=== PATIENT | female | born 1985 | race Caucasian/White ===

== ENCOUNTER → 2017-01-07 | Outpatient (CLI) | payer OTHER ==
[~2017-01-07] MED LIST: ACET1TAB43 PO; AMOX-358 PO; BENZ56AE TP; CETI10CA PO; CODE-54 PO; DCS100C PO; DOCU-143 PO; FERR-74 PO; FRS325T PO; IBP600T1 PO; IBUP-1773 PO; LEVO1TAB7 PO; PREN-37 PO; PREN1TAB25 PO; RANI75TA21 PO; RNT150T PO
--- NOTE | 2017-01-07 16:06 | Diagnostic Imaging Report ---
INDICATION: survey. TECHNIQUE: Multiple real-time grayscale images were obtained over the gravid uterus. COMPARISON: There are no prior studies available for comparison. FINDINGS: There is a single live fetus in cephalic presentation. heart motion was noted and a rate of 155 BPM was recorded. There were no abnormalities identified. The placenta is anterior and there is no previa. The amniotic fluid volume is within normal limits. The growth parameters are fairly uniform. IMPRESSION: 1. There is a single live fetus at approximately 20 weeks 5 days gestation +/-1.5 weeks. The EDC is May 22, 2017. 2. There were no abnormalities identified. 3. The growth parameters are fairly uniform. Biometrical measurements are as follows: Biparietal 4.89 cm, age 20 weeks 5 days. Head circumference 18.39 cm, age 20 weeks 6 days. Abdominal circumference 15.56 cm, age 20 weeks 6 days. Femur length 3.25 cm, age 20 weeks 1 days. Sonographic estimate age: 20 weeks 5 days. Sonographic estimated date of delivery: 05/22/17. Estimated Weight: 358 gm (+/- 52 gm). LMP percentile: 81%. heart rate: 155 beats per minute. number: 1 of 1. Dictated by: Dictated on workstation # [id number]
== END ==
LOC: RAD 13:24
PROVIDERS: ATTEND Obstetrics & Gynecology
DX: Z36 Encounter for antenatal screening of mother (principal); Z3A.20 20 weeks gestation of pregnancy
CPT/HCPCS: 76805

== ENCOUNTER → 2017-04-06 | Outpatient (CLI) | payer OTHER ==
--- NOTE | 2017-04-06 23:00 | Diagnostic Imaging Report ---
Left breast ultrasound. INDICATION: Left breast lump. FINDINGS: The palpable area at 3:30 position measures 2.4 x 0.6 x 1.6 cm. It has appearance of an intramammary lymph node with preserved fatty hilum with smooth margins and mild internal vascularity suggestive of reactive lymph node. No suspicious features, and the retroareolar region and four quadrants of the left breast demonstrate no other significant abnormality. IMPRESSION: A 2.4 cm right breast lesion is seen at the 3:30 position, at 3 cm from the nipple, is favored to be benign and may relate to an intramammary lymph node. Clinical followup and a followup ultrasound in four months is recommended. ACR BI-RADS Category 3: Probably benign findings. Dictated by: Dictated on workstation # [id number]
== END ==
LOC: RAD 14:40
PROVIDERS: ATTEND Surgery
DX: N63.42 Unspecified lump in left breast, subareolar (principal)
CPT/HCPCS: 76641

== ENCOUNTER 2017-05-21 06:28 | Inpatient (IN) | payer OTHER ==
[2017-05-21] VITALS (53 sets, daily range): BP systolic 87–154; BP diastolic 50–98
[~2017-05-21] VITALS: Ht 177.8 cm; Wt 87.1 kg
[~2017-05-21 06:28] MED LIST changes: -FERR-74 PO; +FERR325T18 PO
[2017-05-21] MEDS ORDERED: D5 LR IV SOLUTION 1,000 ML IV ONE (06:47)
[2017-05-21] MEDS: D5 LR IV SOLUTION 1,000 ML IV SCH ×2 (06:58→14:15)
[2017-05-21] MEDS ORDERED: MINERAL OIL CONCENTRATE 99.9% 15 ML UDC TOP PRN (07:00)
[2017-05-21 07:04] LABS: BILIRUBIN,URINE NEGATIVE (NEGATIVE); CLARITY,URINE CLEAR; COLOR,URINE YELLOW; GLUCOSE, URINE (UA) NEGATIVE (NEGATIVE); KETONES,URINE NEGATIVE (NEGATIVE); LEUKOCYTE ESTERASE ,URINE 1+ (NEGATIVE); NITRITE,URINE NEGATIVE (NEGATIVE); PH,URINE 6 (5-9); PROTEIN,URINE NEGATIVE (NEGATIVE); UROBILINOGEN,URINE NORMAL (NORMAL)
[2017-05-21 07:06] LABS: BASOPHILS % (AUTO) 0 % (0-10); EOSINOPHILS # (AUTO) 0.1 10^3/uL (0.0-0.3); EOSINOPHILS % (AUTO) 1 % (0-10); HEMATOCRIT 37 % (35-52); HEMOGLOBIN 12.9 G/DL (11.5-16.0); LYMPHOCYTES # (AUTO) 1.5 X 10^3 (1.0-4.0); LYMPHOCYTES % (AUTO) 22 % (12-44); MEAN CORPUSCULAR HEMOGLOBIN 33 PG (25-34); MEAN CORPUSCULAR HGB CONC 35 G/DL (32-36); MEAN CORPUSCULAR VOLUME 93 FL (80-99); MEAN PLATELET VOLUME 11.5 FL (7.4-10.4); MONOCYTES # (AUTO) 0.7 X 10^3 (0.0-1.0); MONOCYTES % (AUTO) 10 % (0-12); NEUTROPHILS # (AUTO) 4.6 X 10^3 (1.8-7.8); NEUTROPHILS % (AUTO) 67 % (42-75); PLATELET COUNT 180 10^3/uL (130-400); RED BLOOD COUNT 3.96 10^6/uL (4.35-5.85); RED CELL DISTRIBUTION WIDTH 12.7 % (10.0-14.5); WHITE BLOOD COUNT 6.8 10^3/uL (4.3-11.0)
[2017-05-21 07:25] LABS: BACTERIA,URINE TRACE /HPF
[2017-05-21] MEDS ORDERED: OXYTOCIN/NORMAL SALINE 500 ML IV SCH ×2 (07:55→17:05)
--- NOTE | 2017-05-21 09:09 | History & Physical-OB ---
OB - Chief Complaint & HPI Date/Time Date of Admission: Date of Admission: May 21, 2017 at 6:28 am Time Seen by Provider: 07:45 Chief Complaint/History OB-Reason for Admission/Chief: Induction of Labor Hx : 4 Hx Para: 3 Expected Date of Delivery: May 28, 2017 Gestational Age in Weeks: 39 Indication for induction: maternal discomfort Admission Nurse Assessment Rev: Yes History of Labs O neg Antibody neg RI RPR NR HBsAg NR HIV NR GC neg GBS neg Allergies and Home Medications Allergies Coded Allergies: No Known Drug Allergies (Unverified , 09/05/13) Home Medications Acetaminophen with Codeine 1 Each Tablet, 1-2 TAB PO Q4H PRN for MODERATE TO SEVERE PAIN, #30 Prescribed by: SULAIMAN THOMAS on 03/24/15 0903 Amoxicillin/Potassium Clav 1 Each Tablet, 1 EACH PO BID, #10 Prescribed by: SULAIMAN THOAMS on 03/24/15 0918 Cetirizine HCl 10 Mg Capsule, 10 MG PO DAILY, (Reported) Docusate Sodium 100 Mg Capsule, 100 MG PO DAILY, (Reported) Ferrous Sulfate 325 Mg Tablet, 325 MG PO DAILY, #30 Prescribed by: SULAIMAN THOMAS on 03/24/15 09 Ibuprofen 600 Mg Tablet, 600 MG PO Q6H, #80 Prescribed by: SULAIMAN THOMAS on 03/24/15 0903 Vit/Iron Fumarate/FA 1 Each Tablet, 1 EACH PO DAILY, (Reported) Ranitidine HCl 75 Mg Tablet, 75 MG PO DAILY, (Reported) OB - History Hx of Present Care: Yes Ultrasounds: Normal mid trimester US Obstetrical Complications: None Medical Complications: None Obstetrical History Hx Termination: No Hx Multiple Gestation: No Hx Stillbirth: No Hx Complication: No Hx Induced Hypertens: No Hx Maternal Gestational Diabet: No Delivery History Hx Dystocia: No Hx Large For Gestational Age I: No Hx Small for Gestational Age I: No Hx Section: No Hx Vaginal Delivery Post C-Sec: No Hx Blood Disorders: No Adverse Rxn to Tranfusion: No Patient Past Medical History none Social History/Family History Recent Infectious Disease Expo: No Alcohol Use: Denies Use Recreational Drug Use: No Immunizations Hepatitis A: Yes Hepatitis B: Yes Tetanus Booster (TDap): Less than 5yrs Date of Influenza Vaccine: Feb 19, 2015 OB - Admission Exam Physical Exam Vitals: Vital Signs 1/11/18 1/11/18 06:33 08:05 Temp 97.6 Pulse 76 Resp 18 B/P (MAP) 123/75 (91) O2 Delivery Room Air HEENT: NCAT Heart: Rhythm Normal Lungs: Clear Abdomen: Gravid Extremities: Normal Reflexes: Normal Cervical Dilatation: 3cm Effacement: 75% Station: -1 Membranes: Intact Heart Rate: 130's Accelerations: Accelerations Present Decelerations: No Decelerations Short Term Variability: Present Oil Pipe Inspector Variability: Average (6-25) Contractions on Admission: 6-10 Minutes Apart Intensity: Mild Calero Scoring Tool (Modified) Dilation (cm): 3-4cm (2) Effacement (%): 51-79% (2) Descent/Station: -1,0 (2) Cervix Consistency: Soft (2) Cervix Position: Posterior (0) Add 1 point for: Each previous vaginal delivery (1) Calero Score: 11 Labs Laboratory Tests Test 05/21/17 06:40 Range/Units White Blood Count 6.8 4.3-11.0 10^3/uL Red Blood Count 3.96 L 4.35-5.85 10^6/uL Hemoglobin 12.9 11.5-16.0 G/DL Hematocrit 37 35-52 % Mean Corpuscular Volume 93 80-99 FL Mean Corpuscular Hemoglobin 33 25-34 PG Mean Corpuscular Hemoglobin Concent 35 32-36 G/DL Red Cell Distribution Width 12.7 10.0-14.5 % Platelet Count 180 130-400 10^3/uL Mean Platelet Volume 11.5 H 7.4-10.4 FL Neutrophils (%) (Auto) 67 42-75 % Lymphocytes (%) (Auto) 22 12-44 % Monocytes (%) (Auto) 10 0-12 % Eosinophils (%) (Auto) 1 0-10 % Basophils (%) (Auto) 0 0-10 % Neutrophils # (Auto) 4.6 1.8-7.8 X 10^3 Lymphocytes # (Auto) 1.5 1.0-4.0 X 10^3 Monocytes # (Auto) 0.7 0.0-1.0 X 10^3 Eosinophils # (Auto) 0.1 0.0-0.3 10^3/uL Basophils # (Auto) 0.0 0.0-0.1 10^3/uL Urine Color YELLOW Urine Clarity CLEAR Urine pH 6 5-9 Urine Specific [place] 1.010 L 1.016-1.022 Urine Protein NEGATIVE NEGATIVE Urine Glucose (UA) NEGATIVE NEGATIVE Urine Ketones NEGATIVE NEGATIVE Urine Nitrite NEGATIVE NEGATIVE Urine Bilirubin NEGATIVE NEGATIVE Urine Urobilinogen NORMAL NORMAL MG/DL Urine Leukocyte Esterase 1+ H NEGATIVE Urine RBC (Auto) NEGATIVE NEGATIVE Urine RBC NONE /HPF Urine WBC 2-5 /HPF Urine Squamous Epithelial Cells 2-5 /HPF Urine Crystals NONE /LPF Urine Bacteria TRACE /HPF Urine Casts NONE /LPF Urine Mucus NEGATIVE /LPF Urine Culture Indicated NO OB - Assessment/Plan/Diagnosis Assessment Assessment: induction of labor Plan Induction Method: per Pitocin Protocol Discharge Diagnosis Diagnosis: 32 yo @ 39 weeks Elective induction of labor GBS neg SULAIMAN THOMAS DO May 21, 2017 9:09 am
--- NOTE | 2017-05-21 09:10 | Discharge Inst-Women's Service ---
Discharge Inst-Women's Serv Depart Medication/Instructions New, Converted or Re-Newed RX: RX on Chart Consults/Follow Up Additional Follow Up: Yes Orders/Referrals Dr. Thomas in 6 weeks Activity Driving Instructions: No Driving for 1 Week NO SMOKING: NO SMOKING Nothing Inside Vagina: No Douching, No [place], No Tampons Diet Discharge Diet: No Restrictions Symptoms to Report to : Bleeding Excessive, Pain Increased, Fever Over 101 Degrees F, Vaginal Bleeding Increase, Questions/Concerns For Any Problems or Questions: Contact Your Physician Skin/Wound Care Bathing Instructions: Shower (x 2 weeks or sitz baths) SULAIMAN THOMAS DO May 21, 2017 9:10 am
[2017-05-21] MEDS ORDERED: VIT1TABL81 PO (10:45)
[2017-05-21] MEDS ORDERED: DOXY25TA35 PO (10:45)
[2017-05-21] MEDS ORDERED: SUFENTA 0.6MCG/ML BUPIVA 0.125 100 ML ONE (12:37)
[2017-05-21] MEDS ORDERED: fentaNYL INJECTION 100 MCG/2 ML AMP ONE (13:20)
[2017-05-21] MEDS ORDERED: CATHETER FLUSH 10 ML SYR IV SCH ×2 (14:00→22:00)
[2017-05-21] MEDS ORDERED: LACTATED RINGERS 1,000 ML IV ONE (16:17)
[2017-05-21] MEDS ORDERED: NALOXONE 0.4 MG/ML 1 ML (NARCAN) VIAL IV PRN (16:30)
[2017-05-21] MEDS ORDERED: EPIDURAL (SUFENTA 0.6MCG/ML BUPIVA 0.125%) 100 ML BAG EPI SCH (16:30)
[2017-05-21] MEDS ORDERED: CATHETER FLUSH 10 ML SYR IV PRN (16:30)
[2017-05-21] MEDS ORDERED: HYDROcodone/APAP 5 MG/325 MG (LORTAB) TAB PO PRN (17:15)
[2017-05-21] MEDS ORDERED: MEASLES,MUMPS,RUBELLA 1 EA INJ SQ ONE (17:15)
[2017-05-21] MEDS ORDERED: DIBUCAINE (NUPERCAINAL) 1% OINT 30 GM TOP PRN (17:15)
[2017-05-21] MEDS ORDERED: BENZOCAINE/MENTHOL (DERMOPLAST) 56 ML CAN TP PRN (17:15)
[2017-05-21] MEDS ORDERED: TETANUS,DIPTH,PERTUSS P/F (BOOSTRIX) 0.5 ML VIAL IM ONE (17:15)
--- NOTE | 2017-05-21 17:15 | OB Labor & Delivery Record ---
L&D History Date of Service Date of Service: May 21, 2017 History Expected Date of Delivery: May 28, 2017 Gestational Age in Weeks: 39 Hx : 4 Hx Para: 3 Complications Events: Routine care Operative Indications (Cesarea: N/A-Vaginal Delivery Intrapartal Events: None L&D Stage1 Stage One Onset of Labor - Date: May 21, 2017 Monitors and Tracing Monitor Mode: External Heart Rate: 120 Monitor Accelerations: Uniform Monitor Decelerations: None Station: -1 Penitentiary Variability: Average (6-10) Short Term Variability: Present Presentation: Vertex Vital Signs VS - Last 72 Hours, by Label 05/21/17 05/21/17 05/21/17 05/21/17 06:33 08:05 08:20 08:35 Temp 97.6 Pulse 67 76 65 67 Resp 18 16 B/P (MAP) 113/72 (86) 123/75 (91) 111/71 (84) 107/73 (84) O2 Delivery Room Air Room Air Room Air Room Air 05/21/17 05/21/17 05/21/17 05/21/17 08:50 09:05 09:20 09:35 Pulse 63 66 68 71 Resp 16 B/P (MAP) 107/64 (78) 111/65 (80) 106/65 (79) 97/56 (70) O2 Delivery Room Air Room Air Room Air Room Air 05/21/17 05/21/17 05/21/17 05/21/17 09:50 10:20 10:35 10:50 Pulse 68 67 72 57 Resp 16 16 B/P (MAP) 113/78 (90) 120/56 (77) 111/73 (86) 109/68 (82) O2 Delivery Room Air Room Air Room Air Room Air 05/21/17 05/21/17 05/21/17 05/21/17 11:05 11:20 11:35 11:50 Temp 96.9 Pulse 56 60 71 64 Resp 16 18 B/P (MAP) 111/74 (86) 117/77 (90) 120/80 (93) 104/69 (81) O2 Delivery Room Air Room Air Room Air Room Air 05/21/17 05/21/17 05/21/17 05/21/17 12:05 12:20 12:35 12:50 Pulse 62 62 58 60 B/P (MAP) 108/70 (83) 110/72 (85) 127/75 (92) 109/71 (84) O2 Delivery Room Air Room Air Room Air Room Air 05/21/17 05/21/17 05/21/17 05/21/17 13:05 13:15 13:25 13:28 Pulse 78 68 66 73 Resp 18 B/P (MAP) 132/86 (101) 123/76 (92) 113/60 (77) 106/67 (80) Pulse Ox 96 100 96 96 O2 Delivery Room Air Room Air Room Air Room Air 05/21/17 05/21/17 05/21/17 05/21/17 13:30 13:32 13:35 13:38 Temp 96.4 Pulse 69 67 71 63 Resp 18 B/P (MAP) 112/67 (82) 107/60 (76) 118/56 (76) 113/65 (81) Pulse Ox 100 100 100 100 O2 Delivery Room Air Room Air Room Air Room Air 05/21/17 05/21/17 05/21/17 05/21/17 13:41 13:45 13:50 14:00 Pulse 60 64 58 58 B/P (MAP) 93/50 (64) 93/52 (66) 104/66 (79) 117/55 (75) Pulse Ox 100 100 99 98 O2 Delivery Room Air Room Air Room Air Room Air 05/21/17 05/21/17 05/21/17 05/21/17 14:05 14:12 14:30 14:45 Pulse 64 65 67 72 B/P (MAP) 111/70 (84) 87/50 (62) 89/57 (68) 97/52 (67) Pulse Ox 99 99 100 100 O2 Delivery Room Air Room Air Room Air Room Air Rupture of Membranes Spontaneous Ruture of Membrane: No Amniotic Membrane Rupture Time: 1138 Amniotic Membrane Fluid Desc.: Clear Vaginal Bleeding Description: Normal Show Induction/Anesthesia Epidural Cath Placement - Time: 1316 L&D Stage2 Stage Two Stage II Date: May 21, 2017 Monitors and Tracing Monitor Mode: External Heart Rate: 120 Monitor Decelerations: Variable Penitentiary Variability: Average (6-10) Short Term Variability: Present Position: Right Occiput Anterior Presentation: Vertex Cord Descript/Complications Cord Vessel Description: 3 Vessels Complications Cord evulsion occurred at delivery of head, which prompted me to deliver anterior shoulder and remainder of rapidly so that I would clamp the cord RLIEY. Delivery Type Delivery Method: Spontaneous Vaginal Anterior Shoulder: Right Episiotomy/Perineal Laceration Laceraction(s)/Extensions: Yes Episiotomy Description: Perineal Extension/lac, 2nd degree Sutures Used: Vicryl Degree (describe repair) 2nd degree laceration repaired using 3-0 rapide in usual fashion Condition of Infant Delivery 1 minute Comment: 8 5 minute Comment: 9 Notes Weight 8lbs 6 oz, APGARs 8/9 Condition of Condition of Infant: Living Exam: No Observed Abnormalities Resuscitation Resuscitation: N/A - Spontaneous Resp L&D Stage3 Stage Three Stage III Date: May 21, 2017 Pictocin Pitocin Administration mu/min: 8 Pitocin ml/hr: 8 Pitocin Administration Comment: 30 mu ran in wide open at delivery of placenta Placenta Delivery Placenta Delivery: Spontaneous Delivery Summary Summary Estimated blood loss (mL): 350 350 mL Attending at delivery: Sulaiman Thomas DO Condition of Delivery Examined: Cervix Examined, Uterus Explored Post Hemorrhage: No Condition of Mother stable Condition of (s) stable SULAIMAN THOMAS DO May 21, 2017 5:15 pm
[2017-05-21] MEDS: IBUPROFEN 600 MG (MOTRIN) TAB PO SCH ×2 (17:17→23:58)
[2017-05-21] MEDS: WITCH HAZEL(TUCKS) 40 EA JAR TOP PRN (17:18)
[2017-05-21] MEDS ORDERED: ACHD5005 PO (17:19)
[2017-05-21] MEDS ORDERED: Benzocaine/Menthol TP (17:19)
[2017-05-21] MEDS ORDERED: DOCU100C37 PO (17:19)
[2017-05-21] MEDS ORDERED: FERR325T18 PO (17:19)
[2017-05-21] MEDS ORDERED: IBUP-1773 PO (17:19)
[2017-05-21] MEDS ORDERED: DOCUSATE SODIUM 100 MG (COLACE) CAP PO SCH (21:00)
[2017-05-22 04:05] VITALS: BP 112/60
[2017-05-22 05:28] LABS: BASOPHILS % (AUTO) 0 % (0-10); EOSINOPHILS # (AUTO) 0.1 10^3/uL (0.0-0.3); EOSINOPHILS % (AUTO) 1 % (0-10); HEMATOCRIT 35 % (35-52); HEMOGLOBIN 12.1 G/DL (11.5-16.0); LYMPHOCYTES # (AUTO) 2.2 X 10^3 (1.0-4.0); LYMPHOCYTES % (AUTO) 18 % (12-44); MEAN CORPUSCULAR HEMOGLOBIN 33 PG (25-34); MEAN CORPUSCULAR HGB CONC 35 G/DL (32-36); MEAN CORPUSCULAR VOLUME 94 FL (80-99); MEAN PLATELET VOLUME 10.8 FL (7.4-10.4); MONOCYTES # (AUTO) 0.9 X 10^3 (0.0-1.0); MONOCYTES % (AUTO) 7 % (0-12); NEUTROPHILS # (AUTO) 8.7 X 10^3 (1.8-7.8); NEUTROPHILS % (AUTO) 74 % (42-75); PLATELET COUNT 150 10^3/uL (130-400); RED BLOOD COUNT 3.68 10^6/uL (4.35-5.85); RED CELL DISTRIBUTION WIDTH 12.8 % (10.0-14.5); WHITE BLOOD COUNT 11.8 10^3/uL (4.3-11.0)
[2017-05-22] MEDS: IBUPROFEN 600 MG (MOTRIN) TAB PO SCH ×3 (06:08→17:42)
[2017-05-22] MEDS ORDERED: PRENATAL VITAMIN 1 EA TAB PO SCH (07:00)
[2017-05-22] MEDS ORDERED: FERROUS SULF 325 MG (IRON) TAB PO SCH (07:00)
[2017-05-22 08:30] VITALS: BP 107/69
[2017-05-22] MEDS ORDERED: DOCUSATE CALCIUM 240 MG (SURFAK) CAP PO SCH (09:00)
--- NOTE | 2017-05-22 09:19 | Progress Note-Standard ---
Standard Progress Note Progress Notes/Assess & Plan Date Seen by Provider: May 22, 2017 Time Seen by Provider: 09:00 Progress/Assessment & Plan Patient doing well no concerns voiced this morning. Lochia min-mod. Pain well controlled, ambulating and voiding freely. Vital Sign - Last 24 Hours 05/21/17 05/21/17 05/21/17 05/21/17 09:20 09:35 09:50 10:20 Pulse 68 71 68 67 Resp 16 B/P (MAP) 106/65 (79) 97/56 (70) 113/78 (90) 120/56 (77) O2 Delivery Room Air Room Air Room Air Room Air 05/21/17 05/21/17 05/21/17 05/21/17 10:35 10:50 11:05 11:20 Pulse 72 57 56 60 Resp 16 16 16 B/P (MAP) 111/73 (86) 109/68 (82) 111/74 (86) 117/77 (90) O2 Delivery Room Air Room Air Room Air Room Air 05/21/17 05/21/17 05/21/17 05/21/17 11:35 11:50 12:05 12:20 Temp 96.9 Pulse 71 64 62 62 Resp 18 B/P (MAP) 120/80 (93) 104/69 (81) 108/70 (83) 110/72 (85) O2 Delivery Room Air Room Air Room Air Room Air 05/21/17 05/21/17 05/21/17 05/21/17 12:35 12:50 13:05 13:15 Pulse 58 60 78 68 Resp 18 B/P (MAP) 127/75 (92) 109/71 (84) 132/86 (101) 123/76 (92) Pulse Ox 96 100 O2 Delivery Room Air Room Air Room Air Room Air 05/21/17 05/21/17 05/21/17 05/21/17 13:25 13:28 13:30 13:32 Temp 96.4 Pulse 66 73 69 67 Resp 18 B/P (MAP) 113/60 (77) 106/67 (80) 112/67 (82) 107/60 (76) Pulse Ox 96 96 100 100 O2 Delivery Room Air Room Air Room Air Room Air 1/11/18 1/11/18 1/11/18 1/11/18 13:35 13:38 13:41 13:45 Pulse 71 63 60 64 B/P (MAP) 118/56 (76) 113/65 (81) 93/50 (64) 93/52 (66) Pulse Ox 100 100 100 100 O2 Delivery Room Air Room Air Room Air Room Air 05/21/17 05/21/17 05/21/17 05/21/17 13:50 14:00 14:05 14:12 Pulse 58 58 64 65 B/P (MAP) 104/66 (79) 117/55 (75) 111/70 (84) 87/50 (62) Pulse Ox 99 98 99 99 O2 Delivery Room Air Room Air Room Air Room Air 05/21/17 05/21/17 05/21/17 05/21/17 14:30 14:45 14:47 14:50 Pulse 67 72 72 68 Resp 16 B/P (MAP) 89/57 (68) 97/52 (67) 100/50 (67) 105/56 (72) Pulse Ox 100 100 100 100 O2 Delivery Room Air Room Air Room Air Room Air 05/21/17 05/21/17 05/21/17 05/21/17 14:55 14:58 15:00 15:15 Pulse 72 73 72 99 B/P (MAP) 101/54 (70) 95/53 (67) 97/52 (67) 98/59 (72) Pulse Ox 100 100 100 100 O2 Delivery Room Air Room Air Room Air Room Air 05/21/17 05/21/17 05/21/17 05/21/17 15:30 15:42 15:56 16:11 Pulse 93 100 70 77 Resp 16 B/P (MAP) 154/98 (116) 148/69 (95) 113/55 (74) 125/60 (81) Pulse Ox 97 O2 Delivery Room Air Room Air Room Air Room Air 05/21/17 05/21/17 05/21/17 05/21/17 16:26 16:44 16:56 17:11 Temp 96.5 96.7 Pulse 76 68 65 67 Resp 16 B/P (MAP) 123/66 (85) 105/53 (70) 113/59 (77) 99/58 (72) O2 Delivery Room Air Room Air Room Air Room Air 05/21/17 05/21/17 05/21/17 05/22/17 17:26 21:00 23:58 04:05 Temp 97.7 97.9 98.0 Pulse 60 57 64 55 Resp 18 18 18 B/P (MAP) 98/59 (72) 97/59 (72) 103/68 (80) 112/60 (77) Pulse Ox 97 98 99 O2 Delivery Room Air Room Air Room Air Room Air 05/22/17 08:30 Temp 97.8 Pulse 58 Resp 18 B/P (MAP) 107/69 (82) Pulse Ox 100 O2 Delivery Room Air Intake and Output 05/21/17 05/21/17 05/22/17 15:00 23:00 07:00 Intake Total 2000 ml 1120 ml Balance 2000 ml 1120 ml Uterine fundus firm and palpated below umbilicus Laboratory Tests Test 05/22/17 05:20 Range/Units White Blood Count 11.8 H 4.3-11.0 10^3/uL Red Blood Count 3.68 L 4.35-5.85 10^6/uL Hemoglobin 12.1 11.5-16.0 G/DL Hematocrit 35 35-52 % Mean Corpuscular Volume 94 80-99 FL Mean Corpuscular Hemoglobin 33 25-34 PG Mean Corpuscular Hemoglobin Concent 35 32-36 G/DL Red Cell Distribution Width 12.8 10.0-14.5 % Platelet Count 150 130-400 10^3/uL Mean Platelet Volume 10.8 H 7.4-10.4 FL Neutrophils (%) (Auto) 74 42-75 % Lymphocytes (%) (Auto) 18 12-44 % Monocytes (%) (Auto) 7 0-12 % Eosinophils (%) (Auto) 1 0-10 % Basophils (%) (Auto) 0 0-10 % Neutrophils # (Auto) 8.7 H 1.8-7.8 X 10^3 Lymphocytes # (Auto) 2.2 1.0-4.0 X 10^3 Monocytes # (Auto) 0.9 0.0-1.0 X 10^3 Eosinophils # (Auto) 0.1 0.0-0.3 10^3/uL Basophils # (Auto) 0.0 0.0-0.1 10^3/uL Diagnosis: PPD 1 NVD P: Anticipate dc later today PP precautions reviewed. SULAIMAN THOMAS DO May 22, 2017 9:19 am
[2017-05-22 12:15] VITALS: BP 107/70
[2017-05-22 16:30] VITALS: BP 118/71
[2017-05-22] MEDS: WITCH HAZEL(TUCKS) 40 EA JAR TOP PRN (16:30)
[2017-05-22 17:50] VITALS: BP 118/71
== END 2017-05-22 17:50 | disposition home or self-care (01) | DRG 775 ==
LOC: LDRP 06:28
PROVIDERS: ADMIT Obstetrics & Gynecology; ATTEND Obstetrics & Gynecology
PROC: 10E0XZZ Delivery of Products of Conception, External Approach (ICD-10-PCS; principal; 2017-05-21)
PROC: 0KQM0ZZ Repair Perineum Muscle, Open Approach (ICD-10-PCS; 2017-05-21)
DX: O69.89X0 Labor and delivery complicated by other cord complications, not applicable or unspecified (principal); O70.1 Second degree perineal laceration during delivery; Z3A.39 39 weeks gestation of pregnancy; Z37.0 Single live birth
CPT/HCPCS: 36415; 81000; 85025; 86850; 86900; 86901

== ENCOUNTER → 2017-07-13 | Outpatient (CLI) | payer OTHER ==
[~2017-07-13] MED LIST changes: +ACHD5005 PO; +Benzocaine/Menthol TP; +DOCU100C37 PO; +DOXY25TA35 PO; +VIT1TABL81 PO
--- NOTE | 2017-07-13 14:54 | Diagnostic Imaging Report ---
INDICATION: Palpable lump in the left breast. Patient had a palpable lump in the left breast in March with subsequent ultrasound demonstrating a probable intramammary lymph node. COMPARISON: No prior mammograms are available for comparison. The current study was also evaluated with a Computer Aided Detection (CAD) system. FINDINGS: Both breasts are heterogeneously dense, limiting the sensitivity of mammography. Slight nodularity at the area of palpable abnormality is seen, likely corresponding to the known intramammary lymph node. No suspicious calcifications are identified. The axillae are unremarkable. IMPRESSION: No mammographic features suspicious for malignancy. Followup left breast ultrasound is recommended and will be performed today. ACR BI-RADS Category 0: Incomplete. (Needs additional imaging evaluation). Result letter will be mailed to the patient. Note: At least 10% of breast cancer is not imaged by mammography. Dictated by: Dictated on workstation # [id number]
--- NOTE | 2017-07-14 13:34 | Diagnostic Imaging Report ---
INDICATION: Palpable lump in the left breast. TECHNIQUE: Sonographic interrogation of the 3:30 location of the left breast was performed. COMPARISON: Prior ultrasound from 04/06/2017. FINDINGS: The previously noted intramammary lymph node at the 3:30 location 3 cm from the nipple is again seen measuring 2.1 x 0.5 x 1.2 cm. This compares with 2.4 x 0.6 x 1.4 cm previously. A thin overlying cortex is again noted. No other abnormality is seen. IMPRESSION: Slight reduction in the size of the intraparenchymal lymph node at the 3:30 location of the left breast when compared with the prior study from 04/06/2017. Additional sonographic followup could be performed in 4-6 months to show continued stability. ACR BI-RADS Category 3: Probably benign findings. Dictated by: Dictated on workstation # [id number]
== END ==
LOC: RAD 13:43
PROVIDERS: ATTEND Surgery
DX: N63.20 Unspecified lump in the left breast, unspecified quadrant (principal)
CPT/HCPCS: 76642; 77066

== ENCOUNTER → 2018-01-27 | Outpatient (CLI) | payer OTHER ==
--- NOTE | 2018-01-27 18:16 | Diagnostic Imaging Report ---
INDICATION: Left breast nodule. Patient presents for six-month followup. COMPARISON: Correlation is made with prior left breast ultrasound from 07/13/2017. EXAMINATION: Sonographic interrogation of the 3:30 location, 3 cm from the nipple, was performed. FINDINGS: Previously an intramammary lymph node was present. Today no suspicious abnormality is seen. No lymph node, mass or cyst is seen. IMPRESSION: BI-RADS category 1. No sonographic abnormality is identified on today's study. Dictated by: Dictated on workstation # [id number]
== END ==
LOC: RAD 11:37
PROVIDERS: ATTEND Surgery
DX: N63.20 Unspecified lump in the left breast, unspecified quadrant (principal)
CPT/HCPCS: 76642

== ENCOUNTER → 2019-03-15 | Outpatient (CLI) | payer OTHER ==
[~2019-03-15] MED LIST changes: +RANI-324 PO; -RANI75TA21 PO
--- NOTE | 2019-03-15 13:06 | Diagnostic Imaging Report ---
INDICATION: Size and dates. TECHNIQUE: Multiple real-time grayscale images were obtained over the gravid uterus. COMPARISON: None. FINDINGS: There is a single living intrauterine in a cephalic presentation. Placenta is anterior. There is no previa. There is normal volume of amniotic fluid. The anatomical survey is unremarkable. This includes a three-vessel cord and four-chamber heart. Heart rate is 150 BPM and regular. The biometry correlates with a gestational age of 20 weeks 3 days. The maternal adnexa are unremarkable. Biometrical measurements are as follows: Biparietal 4.70 cm, age 20 weeks 2 days. Head circumference 17.94 cm, age 20 weeks 3 days. Abdominal circumference 14.19 cm, age 19 weeks 4 days. Femur length 3.47 cm, age 21 weeks 0 days. Sonographic estimate age: 20 weeks 3 days. Sonographic estimated date of delivery: 07/30/2019. Estimated Weight: 339 gm (+/- 50 gm). LMP percentile: 16%. heart rate: 150 beats per minute. number: 1 of 1. IMPRESSION: Single living intrauterine with sonographically estimated gestational age of 20 weeks 3 days and estimated date of confinement of July 30, 2019. Dictated by: Dictated on workstation # [id number]
== END ==
LOC: RAD 10:08
PROVIDERS: ATTEND Obstetrics & Gynecology
DX: Z34.92 Encounter for supervision of normal pregnancy, unspecified, second trimester (principal); Z3A.20 20 weeks gestation of pregnancy
CPT/HCPCS: 76805

== ENCOUNTER 2019-07-19 22:30 | Inpatient (IN) | payer OTHER ==
[~2019-07-19] VITALS: Ht 177.8 cm; Wt 85.9 kg
--- NOTE | 2019-07-19 22:20 | NUR ---
GENARO PEREZ presented to unit via ambulation from home, accompanied by , for INDUCTION. GENARO PEREZ weighed, gowned, voided, and to bed. EFHM and TOCO applied, VS taken. GENARO PEREZ oriented to bed controls, call light, TV, heat, and A/C controls.
[2019-07-19 22:30] VITALS: BP 126/76
[2019-07-19] MEDS ORDERED: LACTATED RINGERS 1,000 ML IV SCH (23:10)
[2019-07-19] MEDS ORDERED: MISOPROSTOL 100 MCG (CYTOTEC) TAB PO ONE (23:15)
[2019-07-19] MEDS ORDERED: TERBUTALINE INJ 1 MG/ML (BRETHINE) AMP SC PRN (23:15)
[2019-07-19 23:21] LABS: BASOPHILS % (AUTO) 0 % (0-10); EOSINOPHILS # (AUTO) 0.1 10^3/uL (0.0-0.3); EOSINOPHILS % (AUTO) 1 % (0-10); HEMATOCRIT 35 % (35-52); HEMOGLOBIN 11.9 G/DL (11.5-16.0); LYMPHOCYTES # (AUTO) 1.3 X 10^3 (1.0-4.0); LYMPHOCYTES % (AUTO) 17 % (12-44); MEAN CORPUSCULAR HEMOGLOBIN 31 PG (25-34); MEAN CORPUSCULAR HGB CONC 34 G/DL (32-36); MEAN CORPUSCULAR VOLUME 91 FL (80-99); MEAN PLATELET VOLUME 11.1 FL (7.4-10.4); MONOCYTES # (AUTO) 0.8 X 10^3 (0.0-1.0); MONOCYTES % (AUTO) 11 % (0-12); NEUTROPHILS # (AUTO) 5.5 X 10^3 (1.8-7.8); NEUTROPHILS % (AUTO) 71 % (42-75); PLATELET COUNT 202 10^3/uL (130-400); RED CELL DISTRIBUTION WIDTH 12.5 % (10.0-14.5); WHITE BLOOD COUNT 7.7 10^3/uL (4.3-11.0)
[2019-07-19 23:23] VITALS: BP 117/75
[2019-07-19 23:23] LABS: BILIRUBIN,URINE NEGATIVE (NEGATIVE); CLARITY,URINE CLEAR; COLOR,URINE YELLOW; GLUCOSE, URINE (UA) NEGATIVE (NEGATIVE); KETONES,URINE NEGATIVE (NEGATIVE); LEUKOCYTE ESTERASE ,URINE NEGATIVE (NEGATIVE); NITRITE,URINE NEGATIVE (NEGATIVE); PROTEIN,URINE NEGATIVE (NEGATIVE)
[2019-07-19 23:29] LABS: BACTERIA,URINE TRACE /HPF; WBC,URINE RARE /HPF
[2019-07-19] MEDS: D5 LR IV SOLUTION 1,000 ML IV SCH (23:43)
[2019-07-19 23:51] VITALS: BP 113/64
[2019-07-20] VITALS (77 sets, daily range): BP systolic 88–130; BP diastolic 50–79
[2019-07-20] MEDS ORDERED: MISOPROSTOL 100 MCG (CYTOTEC) TAB PO SCH (03:15)
[2019-07-20] MEDS ORDERED: ONDANSETRON 4 MG/2 ML (SDV) Z0FRAN IVP PRN (03:15)
[2019-07-20] MEDS ORDERED: FAMO-119 PO (04:00)
[2019-07-20] MEDS ORDERED: CATHETER FLUSH 10 ML SYR IV SCH (06:00)
[2019-07-20] MEDS: D5 LR IV SOLUTION 1,000 ML IV SCH ×2 (07:20→15:19)
[2019-07-20] MEDS ORDERED: OXYTOCIN PRE-MIX DRIP 500 ML IV ONE (08:01)
[2019-07-20] MEDS ORDERED: OXYTOCIN PRE-MIX DRIP 500 ML IV SCH ×2 (08:04→08:30)
--- NOTE | 2019-07-20 08:28 | History & Physical-OB ---
OB - Chief Complaint & HPI Date/Time Date of Admission: Date of Admission: Jul 19, 2019 at 22:30 Date seen by a Provider: Jul 20, 2019 Time Seen by a Provider: 08:20 Chief Complaint/History OB-Reason for Admission/Chief: Induction of Labor Hx : 5 Hx Para: 4 Expected Date of Delivery: Jul 27, 2019 Gestational Age in Weeks: 39 Gestational Age in Days: 0 Indication for induction: maternal discomfort Admission Nurse Assessment Rev: Yes History of Labs O neg Antibody neg RI RPR NR HBsAg NR HIV NR GC neg GBS neg Allergies and Home Medications Allergies Coded Allergies: No Known Drug Allergies (Unverified , 09/05/13) Home Medications Doxylamine Succinate 25 Mg Tablet, 25 MG PO HS, (Reported) Famotidine 20 Mg Tablet, 20 MG PO PRN, (Reported) Vit/Iron Fumarate/FA 1 Each Tablet, 1 EACH PO DAILY, (Reported) Vit B6/Mag Cit & Ox/Potass Cit 1 Each Tablet.er, 1 EACH PO DAILY, (Reported) Patient Home Medication List Home Medication List Reviewed: Yes OB - History Hx of Present Care: Yes Ultrasounds: Normal mid trimester US Obstetrical Complications: None Medical Complications: None Obstetrical History Hx Termination: No Hx Multiple Gestation: No Hx Stillbirth: No Hx Complication: No Hx Induced Hypertens: No Hx Maternal Gestational Diabet: No Delivery History Hx Dystocia: No Hx Large For Gestational Age I: No Hx Small for Gestational Age I: No Hx Section: No Hx Vaginal Delivery Post C-Sec: No Hx Blood Disorders: No Adverse Rxn to Tranfusion: No Patient Past Medical History none Social History/Family History Recent Infectious Disease Expo: No Alcohol Use: Denies Use Recreational Drug Use: No Immunizations Hepatitis A: Yes Hepatitis B: Yes Tetanus Booster (TDap): Less than 5yrs Date of Influenza Vaccine: Jan 25, 2019 OB - Admission Exam Physical Exam Vitals: Vital Signs 07/19/19 07/20/19 07/20/19 22:30 02:51 03:25 Temp 36.7 Pulse 55 Resp 18 B/P (MAP) 92/55 (67) Pulse Ox 99 O2 Delivery Room Air HEENT: NCAT Heart: Rhythm Normal Lungs: Clear Abdomen: Gravid Extremities: Normal Reflexes: Normal Cervical Dilatation: 1cm Effacement: 75% Station: -2 Membranes: Intact Heart Rate: 130's Accelerations: Accelerations Present Decelerations: No Decelerations Short Term Variability: Present Electrical Instrumentation Technician Variability: Average (6-25) Contractions on Admission: < 5 Minutes Apart Intensity: Mild Calero Scoring Tool (Modified) Dilation (cm): 1-2cm (1) Effacement (%): 51-79% (2) Descent/Station: -1,0 (2) Cervix Consistency: Soft (2) Cervix Position: Middle/Mid-Position (1) Add 1 point for: Each previous vaginal delivery (1) Calero Score: 12 Labs Laboratory Tests Test 07/19/19 22:40 Range/Units White Blood Count 7.7 4.3-11.0 10^3/uL Red Blood Count 3.84 L 4.35-5.85 10^6/uL Hemoglobin 11.9 11.5-16.0 G/DL Hematocrit 35 35-52 % Mean Corpuscular Volume 91 80-99 FL Mean Corpuscular Hemoglobin 31 25-34 PG Mean Corpuscular Hemoglobin Concent 34 32-36 G/DL Red Cell Distribution Width 12.5 10.0-14.5 % Platelet Count 202 130-400 10^3/uL Mean Platelet Volume 11.1 H 7.4-10.4 FL Neutrophils (%) (Auto) 71 42-75 % Lymphocytes (%) (Auto) 17 12-44 % Monocytes (%) (Auto) 11 0-12 % Eosinophils (%) (Auto) 1 0-10 % Basophils (%) (Auto) 0 0-10 % Neutrophils # (Auto) 5.5 1.8-7.8 X 10^3 Lymphocytes # (Auto) 1.3 1.0-4.0 X 10^3 Monocytes # (Auto) 0.8 0.0-1.0 X 10^3 Eosinophils # (Auto) 0.1 0.0-0.3 10^3/uL Basophils # (Auto) 0.0 0.0-0.1 10^3/uL Urine Color YELLOW Urine Clarity CLEAR Urine pH 6.0 5-9 Urine Specific Edison 1.010 L 1.016-1.022 Urine Protein NEGATIVE NEGATIVE Urine Glucose (UA) NEGATIVE NEGATIVE Urine Ketones NEGATIVE NEGATIVE Urine Nitrite NEGATIVE NEGATIVE Urine Bilirubin NEGATIVE NEGATIVE Urine Urobilinogen 0.2 < = 1.0 MG/DL Urine Leukocyte Esterase NEGATIVE NEGATIVE Urine RBC (Auto) TRACE-I NEGATIVE Urine RBC NONE /HPF Urine WBC RARE /HPF Urine Squamous Epithelial Cells 2-5 /HPF Urine Crystals NONE /LPF Urine Bacteria TRACE /HPF Urine Casts NONE /LPF Urine Mucus NEGATIVE /LPF Urine Culture Indicated NO OB - Assessment/Plan/Diagnosis Assessment Assessment: induction of labor Admission Dx 34 yo @ 39 weeks Induction of labor GBS neg Admission Status: Inpatient Order (span 2 midnights) Reason for Inpatient Admission: Induction of labor at term Plan Plan: Induction Induction Method: per Misoprostol Protocol SULAIMAN THOMAS DO Jul 20, 2019 08:28
[2019-07-20] MEDS ORDERED: SUFENTA 0.6MCG/ML BUPIVA 0.125 100 ML ONE (11:58)
--- NOTE | 2019-07-20 12:20 | NUR ---
1220 Neftali GILMAN CRNA here for epidural placement. Procedure explained, consent reviewed and signed by anesthesia. Questions answered to patient's satisfaction. Time out taken to verify correct patient/procedure. Patient up to side of bed, assisted into sitting position. 1223 Betadine prep done x3 and sterile drape applied. 1226 Local done, see anesthesia record. 1228 Test dose given, see anesthesia record for drug and dosage. 1230 Test dose #2 given, see anesthesia record for drug and dosage. Epidural catheter secured in place. Epidural placement complete. 1233 Assisted back into bed, monitors adjusted. Epidural dosed, see anesthesia record. Epidural of Sufenta/Bupvicaine @ 12cc/hr stated per pump. Patient tolerated procedure well.
[2019-07-20] MEDS: EPIDURAL (SUFENTA 0.6MCG/ML BUPIVA 0.125%) 100 ML BAG EPI SCH ×2 (12:34→19:05)
[2019-07-20] MEDS ORDERED: LACTATED RINGERS 1,000 ML IV SCH (12:42)
[2019-07-20] MEDS ORDERED: METOCLOPRAMIDE INJ 10 MG/2 ML (REGLAN) IV PRN (12:45)
[2019-07-20] MEDS ORDERED: diphenhydrAMINE 50 MG/ML INJ (BENADRYL) IV PRN (12:45)
[2019-07-20] MEDS ORDERED: NALOXONE 0.4 MG/ML 1 ML (NARCAN) VIAL IV PRN ×2 (12:45)
[2019-07-20] MEDS ORDERED: LIDOCAINE/EPI 2% 1:200,00 (XYLOCAINE) 10 ML VIAL ONE (16:16)
[2019-07-20] MEDS: ONDANSETRON 4 MG/2 ML (SDV) Z0FRAN IV PRN (20:41)
[2019-07-21] VITALS (22 sets, daily range): BP systolic 97–139; BP diastolic 56–86
[2019-07-21] MEDS ORDERED: ONDANSETRON 4 MG/2 ML (SDV) Z0FRAN ONE (03:20)
[2019-07-21] MEDS: ONDANSETRON 4 MG/2 ML (SDV) Z0FRAN IV PRN (03:20)
--- NOTE | 2019-07-21 03:20 | NUR ---
0315 - EPIDURAL CATH REMOVED, CATH TIP IN TACT, ASYMPTOMATIC PER PT REPORT, SITE WNL AND LEFT O/A 0320 - PT AMBULATORY STANDBY TO BATHROOM, FIRST VOID SINCE DELIVERY, PERICARE PADS CHANGED, PT AMBULATORY TO PP ROOM 309, ORIENTED TO CALL SYSTEM AND SURROUNDINGS, DENIES NEEDS. WILL CONT TO MONITOR.
--- NOTE | 2019-07-21 04:13 | OB Labor & Delivery Record ---
L&D History Date of Service Date of Service: Jul 21, 2019 History Expected Date of Delivery: Jul 27, 2019 Gestational Age in Weeks: 39 Hx : 5 Hx Para: 4 Complications Events: Routine care Operative Indications (Cesarea: N/A-Vaginal Delivery Intrapartal Events: None L&D Stage1 Stage One Onset of Labor - Date: Jul 21, 2019 Monitors and Tracing Monitor Mode: External Heart Rate: 125 Monitor Accelerations: Uniform Monitor Decelerations: Variable Station: -3 Senior Living Variability: Average (6-10) Short Term Variability: Present Presentation: Vertex Vital Signs VS - Last 72 Hours, by Label 07/19/19 07/19/19 07/19/19 07/20/19 22:30 23:23 23:51 00:50 Temp 36.6 36.7 Pulse 73 67 67 61 Resp 18 18 18 18 B/P (MAP) 117/75 (89) 113/64 (80) 109/65 (80) Pulse Ox 99 O2 Delivery Room Air Room Air Room Air Room Air 07/20/19 07/20/19 07/20/19 07/20/19 01:51 02:51 03:25 07:24 Temp 36.7 36.8 Pulse 58 55 71 Resp 18 18 18 B/P (MAP) 88/53 (65) 92/55 (67) 114/73 (87) O2 Delivery Room Air Room Air Room Air 07/20/19 07/20/19 07/20/19 07/20/19 08:14 08:29 08:43 08:59 Pulse 69 60 62 67 Resp 18 18 18 18 B/P (MAP) 115/65 (82) 116/68 (84) 105/55 (72) 102/57 (72) O2 Delivery Room Air Room Air Room Air Room Air 07/20/19 07/20/19 07/20/19 07/20/19 10:04 10:14 10:28 10:45 Temp 36.9 Pulse 66 60 60 60 Resp 18 18 18 18 B/P (MAP) 114/76 (89) 116/73 (87) 110/73 (85) 114/73 (87) O2 Delivery Room Air Room Air Room Air Room Air 07/20/19 07/20/19 07/20/19 07/20/19 10:59 11:14 11:30 11:44 Temp 36.6 Pulse 70 57 62 59 Resp 18 18 18 18 B/P (MAP) 106/65 (79) 108/66 (80) 112/58 (76) 123/67 (85) O2 Delivery Room Air Room Air Room Air Room Air 07/20/19 07/20/19 07/20/19 07/20/19 12:00 12:13 12:22 12:25 Pulse 63 60 69 72 Resp 18 18 18 18 B/P (MAP) 119/68 (85) 111/71 (84) 115/74 (88) 111/73 (86) Pulse Ox 100 O2 Delivery Room Air Room Air Room Air Room Air 07/20/19 07/20/19 07/20/19 07/20/19 12:28 12:31 12:34 12:37 Pulse 63 71 69 64 Resp 18 18 18 18 B/P (MAP) 113/78 (90) 118/75 (89) 120/68 (85) 110/64 (79) Pulse Ox 100 100 100 O2 Delivery Room Air Room Air Room Air Room Air 07/20/19 07/20/19 07/20/19 07/20/19 12:40 12:42 12:46 12:49 Pulse 64 61 64 61 Resp 18 18 18 18 B/P (MAP) 102/62 (75) 102/62 (75) 106/59 (75) 101/60 (74) Pulse Ox 99 99 O2 Delivery Room Air Room Air Room Air Room Air 07/20/19 07/20/19 07/20/19 07/20/19 12:52 12:57 13:02 13:08 Pulse 72 65 64 67 Resp 18 18 18 18 B/P (MAP) 101/60 (74) 104/65 (78) 130/58 (82) Pulse Ox 99 98 98 100 O2 Delivery Room Air Room Air Room Air Room Air 07/20/19 07/20/19 07/20/19 07/20/19 13:14 13:17 13:22 13:28 Pulse 60 58 55 56 Resp 18 18 18 18 B/P (MAP) 106/60 (75) 100/63 (75) 100/63 (75) 99/60 (73) Pulse Ox 99 99 98 98 O2 Delivery Room Air Room Air Room Air Room Air 07/20/19 07/20/19 07/20/19 3/11/20 13:34 13:37 13:42 13:52 Pulse 56 60 58 64 Resp 18 18 18 18 B/P (MAP) 99/57 (71) 94/61 (72) 98/61 (73) 115/79 (91) Pulse Ox 98 97 98 100 O2 Delivery Room Air Room Air Room Air Room Air 07/20/19 07/20/19 07/20/19 07/20/19 14:00 14:20 14:27 14:35 Temp 36.5 Pulse 67 51 62 Resp 18 18 18 B/P (MAP) 120/59 (79) 96/61 (73) 111/74 (86) O2 Delivery Room Air Room Air Room Air 07/20/19 07/20/19 07/20/19 07/20/19 14:50 15:05 15:20 15:35 Pulse 58 68 60 59 Resp 18 18 18 18 B/P (MAP) 103/75 (84) 104/72 (83) 104/70 (81) 105/64 (78) O2 Delivery Room Air Room Air Room Air Room Air 07/20/19 07/20/19 07/20/19 07/20/19 15:49 16:04 16:20 16:35 Temp 36.6 Pulse 125 57 61 Resp 18 18 18 18 B/P (MAP) 106/70 (82) 111/78 (89) 100/65 (77) 102/67 (79) O2 Delivery Room Air Room Air Room Air Room Air 07/20/19 07/20/19 07/20/19 07/20/19 16:51 16:53 17:06 17:20 Temp 36.9 Pulse 61 58 60 Resp 18 18 18 B/P (MAP) 111/74 (86) 108/69 (82) 96/52 (67) O2 Delivery Room Air Room Air Room Air 07/20/19 07/20/19 07/20/19 07/20/19 17:34 17:50 18:05 18:35 Pulse 60 59 60 61 Resp 18 18 18 18 B/P (MAP) 97/52 (67) 92/50 (64) 95/51 (66) 101/55 (70) O2 Delivery Room Air Room Air Room Air Room Air 07/20/19 07/20/19 07/20/19 07/20/19 18:51 19:15 19:30 19:45 Temp 36.8 Pulse 63 65 65 82 Resp 18 18 18 18 B/P (MAP) 106/56 (73) 114/62 (79) 115/68 (84) 112/57 (75) O2 Delivery Room Air Room Air Room Air Room Air 07/20/19 07/20/19 07/20/19 07/20/19 20:00 20:15 20:30 20:45 Temp 37.0 Pulse 85 85 77 80 Resp 18 18 18 18 B/P (MAP) 95/52 (66) 105/56 (72) 96/51 (66) 113/60 (77) O2 Delivery Room Air Room Air Room Air Room Air 07/20/19 07/20/19 07/20/19 07/20/19 21:00 21:15 21:30 21:45 Pulse 80 67 70 75 Resp 18 18 18 18 B/P (MAP) 113/60 (77) 111/65 (80) 100/58 (72) 100/58 (72) O2 Delivery Room Air Room Air Room Air Room Air 07/20/19 07/20/19 07/20/19 07/20/19 22:00 22:15 22:30 22:45 Pulse 83 67 72 75 Resp 18 18 18 18 B/P (MAP) 130/78 (95) 107/60 (76) 105/56 (72) 106/60 (75) O2 Delivery Room Air Room Air Room Air Room Air 07/20/19 07/20/19 07/20/19 07/20/19 23:00 23:15 23:30 23:45 Pulse 77 75 77 72 Resp 18 18 18 18 B/P (MAP) 109/69 (82) 108/69 (82) 109/69 (82) 114/67 (83) O2 Delivery Room Air Room Air Room Air Room Air 07/21/19 07/21/19 07/21/19 07/21/19 00:00 00:15 00:30 00:45 Temp 36.9 Pulse 77 78 73 72 Resp 18 18 18 18 B/P (MAP) 109/70 (83) 107/72 (84) 106/63 (77) 103/60 (74) O2 Delivery Room Air Room Air Room Air Room Air 07/21/19 07/21/19 07/21/19 01:00 01:15 01:30 Pulse 72 75 68 Resp 18 18 18 B/P (MAP) 111/66 (81) 115/75 (88) 109/64 (79) O2 Delivery Room Air Room Air Room Air Rupture of Membranes Spontaneous Ruture of Membrane: No Amniotic Membrane Rupture Time: 1151 Amniotic Membrane Fluid Desc.: Clear Vaginal Bleeding Description: Normal Show Induction/Anesthesia Epidural Cath Placement - Time: 1227 Progress/Notes Patient brought in last night and given cytotec po 100 mcg followed by 50 mcg dose 4 hrs later. Pitocin started at 0750 due to being unable to AROM. At noon arom performed, and pitocin continued to max dose of 20 mu, in that time frame epidural requested and patient progressed to complete and +2 station. L&D Stage2 Stage Two Stage II Date: Jul 21, 2019 Monitors and Tracing Monitor Mode: External Heart Rate: 125 Monitor Accelerations: Uniform Monitor Decelerations: Variable Senior Living Variability: Average (6-10) Short Term Variability: Present Position: Right Occiput Anterior Presentation: Vertex Cord Descript/Complications Cord Vessel Description: 3 Vessels Complications nuchal cord x 1 Delivery Type Delivery Method: Spontaneous Vaginal Anterior Shoulder: Right Episiotomy/Perineal Laceration Laceraction(s)/Extensions: No Condition of Delivery 1 minute Comment: 9 5 minute Comment: 9 Notes Live female infant weight 6lbs 12 oz Condition of Infant Condition of : Living Exam: No Observed Abnormalities Resuscitation Resuscitation: N/A - Spontaneous Resp L&D Stage3 Stage Three Stage III Date: Jul 21, 2019 Pictocin Pitocin Administration mu/min: 16 Pitocin ml/hr: 16 Pitocin Administration Comment: 2 bags of pitocin wide open at delivery of placenta Placenta Delivery Placenta Delivery: Spontaneous Delivery Summary Summary Estimated blood loss (mL): 200 200 Attending at delivery: Sulaiman Thomas DO Condition of Delivery Examined: Cervix Examined, Uterus Explored Post Hemorrhage: No Condition of Mother stable Condition of Infant (s) stable SULAIMAN THOMAS DO Jul 21, 2019 04:13
[2019-07-21] MEDS ORDERED: TETANUS,DIPTH,PERTUSS P/F (BOOSTRIX) 0.5 ML VIAL IM ONE (04:15)
[2019-07-21] MEDS ORDERED: WITCH HAZEL(TUCKS) 40 EA JAR TOP PRN (04:15)
[2019-07-21] MEDS ORDERED: DCS100C PO (04:15)
[2019-07-21] MEDS ORDERED: HYDROcodone/APAP 5 MG/325 MG (LORTAB) TAB PO PRN (04:15)
[2019-07-21] MEDS ORDERED: BENZ78AE2 TP (04:15)
[2019-07-21] MEDS ORDERED: Hydrocodone Bit/Acetaminophen PO (04:15)
[2019-07-21] MEDS ORDERED: BENZOCAINE/MENTHOL (DERMOPLAST) 60 ML CAN TP PRN (04:15)
[2019-07-21] MEDS ORDERED: MEASLES,MUMPS,RUBELLA 1 EA INJ SQ ONE (04:15)
[2019-07-21] MEDS ORDERED: DIBU30OI TOP (04:15)
[2019-07-21] MEDS ORDERED: DIBUCAINE (NUPERCAINAL) 1% OINT 30 GM TOP PRN (04:15)
[2019-07-21] MEDS ORDERED: IBUP-844 PO (04:15)
--- NOTE | 2019-07-21 04:15 | Discharge Inst-Women's Service ---
Discharge Inst-Women's Serv Depart Medication/Instructions New, Converted or Re-Newed RX: RX on Chart Final Diagnosis PPD 1 NVD Problems Reviewed?: Yes Consults/Follow Up Additional Follow Up: Yes Orders/Referrals Dr. Thomas in 6 weeks Activity Activity: Activity as Tolerated Driving Instructions: No Driving for 1 Week NO SMOKING: NO SMOKING Nothing Inside Vagina: No Douching, No Troutman, No Tampons Diet Discharge Diet: No Restrictions Symptoms to Report to : Bleeding Excessive, Pain Increased, Fever Over 101 Degrees F, Vaginal Bleeding Increase, Questions/Concerns For Any Problems or Questions: Contact Your Physician SULAIMAN THOMAS DO Jul 21, 2019 04:15
[2019-07-21] MEDS: OXYTOCIN PRE-MIX DRIP 500 ML IV SCH ×2 (04:22→05:53)
[2019-07-21] MEDS: IBUPROFEN 600 MG (MOTRIN) TAB PO SCH ×3 (05:28→18:37)
[2019-07-21] MEDS ORDERED: CATHETER FLUSH 10 ML SYR IV SCH (06:00)
[2019-07-21] MEDS ORDERED: PRENATAL VITAMIN 1 EA TAB PO SCH (07:00)
--- NOTE | 2019-07-21 08:02 | Postpartum Progress Note ---
LUIS HUDSON MED STUDENT 07/21/19 0802: Note Note Day # [0] Subjective: Patient is without complaints. Ambulating, voiding. Tolerating a regular diet without nausea or vomiting. Normal lochia. Pain is well controlled with oral pain medications. . [] Objective: [Vitals: Temp 36.9, HR 66, RR 18, BP 97/59] Physical Exam: General - Alert and oriented, no apparent distress Abdomen - Soft, appropriately tender to palpation, non-distended, fundus firm at umbilicus Extremities - no edema, negative Ervin's bilaterally [] Assessment: [] post- day # [0], status post vaginal delivery. Recovering well, hemodynamically stable [] Plan: Routine care. Encourage breast feeding. Encourage ambulation. Ferrous sulfate supplementation. Plan for discharge [] Vitals - Labs Vital Signs - I&O Vital Signs Date Time Temp Pulse Resp B/P (MAP) Pulse Ox O2 Delivery O2 Flow Rate FiO2 07/21/19 06:10 36.9 66 18 97/59 (72) 96 07/21/19 05:00 38.6 18 07/21/19 04:45 38.4 18 07/21/19 04:30 37.0 73 18 109/71 (84) 07/21/19 04:15 38.6 18 99/56 (70) 07/21/19 04:00 37.0 18 07/21/19 03:48 18 Room Air 07/21/19 03:40 90 18 139/76 (97) Room Air 07/21/19 03:30 87 18 137/67 (90) Room Air 07/21/19 03:15 71 18 121/75 (90) Room Air 07/21/19 03:00 75 18 116/70 (85) Room Air 07/21/19 02:45 76 18 123/76 (92) Room Air 07/21/19 02:30 70 18 123/76 (92) Room Air 07/21/19 02:15 88 18 117/76 (90) Room Air 07/21/19 02:00 81 18 117/71 (86) Room Air 07/21/19 01:45 82 18 115/66 (82) Room Air 07/21/19 01:30 68 18 109/64 (79) Room Air 07/21/19 01:15 75 18 115/75 (88) Room Air 07/21/19 01:00 72 18 111/66 (81) Room Air 07/21/19 00:45 72 18 103/60 (74) Room Air 07/21/19 00:30 73 18 106/63 (77) Room Air 07/21/19 00:15 78 18 107/72 (84) Room Air 07/21/19 00:00 36.9 77 18 109/70 (83) Room Air 07/20/19 23:45 72 18 114/67 (83) Room Air 07/20/19 23:30 77 18 109/69 (82) Room Air 07/20/19 23:15 75 18 108/69 (82) Room Air 07/20/19 23:00 77 18 109/69 (82) Room Air 07/20/19 22:45 75 18 106/60 (75) Room Air 07/20/19 22:30 72 18 105/56 (72) Room Air 07/20/19 22:15 67 18 107/60 (76) Room Air 07/20/19 22:00 83 18 130/78 (95) Room Air 07/20/19 21:45 75 18 100/58 (72) Room Air 07/20/19 21:30 70 18 100/58 (72) Room Air 07/20/19 21:15 67 18 111/65 (80) Room Air 07/20/19 21:00 80 18 113/60 (77) Room Air 07/20/19 20:45 80 18 113/60 (77) Room Air 07/20/19 20:30 77 18 96/51 (66) Room Air 07/20/19 20:15 85 18 105/56 (72) Room Air 07/20/19 20:00 37.0 85 18 95/52 (66) Room Air 07/20/19 19:45 82 18 112/57 (75) Room Air 07/20/19 19:30 65 18 115/68 (84) Room Air 07/20/19 19:15 65 18 114/62 (79) Room Air 07/20/19 18:51 36.8 63 18 106/56 (73) Room Air 07/20/19 18:35 61 18 101/55 (70) Room Air 07/20/19 18:05 60 18 95/51 (66) Room Air 07/20/19 17:50 59 18 92/50 (64) Room Air 07/20/19 17:34 60 18 97/52 (67) Room Air 07/20/19 17:20 60 18 96/52 (67) Room Air 07/20/19 17:06 58 18 108/69 (82) Room Air 07/20/19 16:53 36.9 07/20/19 16:51 61 18 111/74 (86) Room Air 07/20/19 16:35 61 18 102/67 (79) Room Air 07/20/19 16:20 57 18 100/65 (77) Room Air 07/20/19 16:04 36.6 18 111/78 (89) Room Air 07/20/19 15:49 125 18 106/70 (82) Room Air 07/20/19 15:35 59 18 105/64 (78) Room Air 07/20/19 15:20 60 18 104/70 (81) Room Air 07/20/19 15:05 68 18 104/72 (83) Room Air 07/20/19 14:50 58 18 103/75 (84) Room Air 07/20/19 14:35 62 18 111/74 (86) Room Air 07/20/19 14:27 36.5 07/20/19 14:20 51 18 96/61 (73) Room Air 07/20/19 14:00 67 18 120/59 (79) Room Air 07/20/19 13:52 64 18 115/79 (91) 100 Room Air 07/20/19 13:42 58 18 98/61 (73) 98 Room Air 07/20/19 13:37 60 18 94/61 (72) 97 Room Air 07/20/19 13:34 56 18 99/57 (71) 98 Room Air 07/20/19 13:28 56 18 99/60 (73) 98 Room Air 07/20/19 13:22 55 18 100/63 (75) 98 Room Air 07/20/19 13:17 58 18 100/63 (75) 99 Room Air 07/20/19 13:14 60 18 106/60 (75) 99 Room Air 07/20/19 13:08 67 18 130/58 (82) 100 Room Air 07/20/19 13:02 64 18 98 Room Air 07/20/19 12:57 65 18 104/65 (78) 98 Room Air 07/20/19 12:52 72 18 101/60 (74) 99 Room Air 07/20/19 12:49 61 18 101/60 (74) Room Air 07/20/19 12:46 64 18 106/59 (75) 99 Room Air 07/20/19 12:42 61 18 102/62 (75) 99 Room Air 07/20/19 12:40 64 18 102/62 (75) Room Air 07/20/19 12:37 64 18 110/64 (79) 100 Room Air 07/20/19 12:34 69 18 120/68 (85) Room Air 07/20/19 12:31 71 18 118/75 (89) 100 Room Air 07/20/19 12:28 63 18 113/78 (90) 100 Room Air 07/20/19 12:25 72 18 111/73 (86) Room Air 07/20/19 12:22 69 18 115/74 (88) 100 Room Air 07/20/19 12:13 60 18 111/71 (84) Room Air 07/20/19 12:00 63 18 119/68 (85) Room Air 07/20/19 11:44 59 18 123/67 (85) Room Air 07/20/19 11:30 36.6 62 18 112/58 (76) Room Air 07/20/19 11:14 57 18 108/66 (80) Room Air 07/20/19 10:59 70 18 106/65 (79) Room Air 07/20/19 10:45 60 18 114/73 (87) Room Air 07/20/19 10:28 60 18 110/73 (85) Room Air 07/20/19 10:14 60 18 116/73 (87) Room Air 07/20/19 10:04 36.9 66 18 114/76 (89) Room Air 07/20/19 08:59 67 18 102/57 (72) Room Air 07/20/19 08:43 62 18 105/55 (72) Room Air 07/20/19 08:29 60 18 116/68 (84) Room Air 07/20/19 08:14 69 18 115/65 (82) Room Air I & O 07/21/19 07:00 Intake Total 2000 ml Balance 2000 ml WHEAT,MERLY L 07/22/19 1049: LUIS HUDSON MED STUDENT Jul 21, 2019 08:02 MERLY MORRIS Jul 22, 2019 10:49
[2019-07-21] MEDS ORDERED: FERROUS SULF 325 MG (IRON) TAB PO SCH (09:00)
[2019-07-21] MEDS: DOCUSATE SODIUM 100 MG (COLACE) CAP PO SCH ×2 (09:35→21:31)
--- NOTE | 2019-07-21 09:35 | NUR ---
initial shift assessment completed, see interventions for further.
--- NOTE | 2019-07-21 12:55 | NUR ---
scheduled motrin given, see eMar for further. voices no c/o's @ time.
[2019-07-21] MEDS ORDERED: FAMOTIDINE 20 MG (PEPCID) TABLET ONE (13:15)
--- NOTE | 2019-07-21 14:19 | NUR ---
Pt is [employer]. Senior Quality Assurance Engineer provided prayer and Communion.
--- NOTE | 2019-07-21 14:40 | Anesthesia-Regional Post-Op ---
Regional Patient Condition Mental Status: Alert, Oriented x3 Circulation: Same as Pre-Op Headache: Absent Sensation: Full Recovery Motor Block: Absent Post Op Complications Complications None Follow Up Care/Instructions Patient Instructions None needed. Anesthesia/Patient Condition Patient is doing well, no complaints, stable vital signs, no apparent adverse anesthesia problems. VALENTINE MCLEOD DO Jul 21, 2019 14:40
--- NOTE | 2019-07-21 19:27 | NUR ---
report given to next shift
[2019-07-21] MEDS: FAMOTIDINE 20 MG (PEPCID) TABLET PO SCH (21:31)
[2019-07-22 00:05] VITALS: BP 100/52
[2019-07-22] MEDS: IBUPROFEN 600 MG (MOTRIN) TAB PO SCH ×3 (00:07→11:38)
--- NOTE | 2019-07-22 01:15 | NUR ---
Report from Hodan LAWRENCE
[2019-07-22 05:34] VITALS: BP 112/69
[2019-07-22 06:21] LABS: BASOPHILS # (AUTO) 0.1 10^3/uL (0.0-0.1); BASOPHILS % (AUTO) 1 % (0-10); EOSINOPHILS # (AUTO) 0.2 10^3/uL (0.0-0.3); EOSINOPHILS % (AUTO) 2 % (0-10); HEMATOCRIT 33 % (35-52); HEMOGLOBIN 10.8 G/DL (11.5-16.0); LYMPHOCYTES # (AUTO) 2.1 X 10^3 (1.0-4.0); LYMPHOCYTES % (AUTO) 27 % (12-44); MEAN CORPUSCULAR HEMOGLOBIN 31 PG (25-34); MEAN CORPUSCULAR HGB CONC 33 G/DL (32-36); MEAN CORPUSCULAR VOLUME 94 FL (80-99); MEAN PLATELET VOLUME 9.8 FL (7.4-10.4); MONOCYTES # (AUTO) 0.8 X 10^3 (0.0-1.0); MONOCYTES % (AUTO) 10 % (0-12); NEUTROPHILS # (AUTO) 4.8 X 10^3 (1.8-7.8); NEUTROPHILS % (AUTO) 61 % (42-75); PLATELET COUNT 162 10^3/uL (130-400); RED CELL DISTRIBUTION WIDTH 12.9 % (10.0-14.5); WHITE BLOOD COUNT 7.9 10^3/uL (4.3-11.0)
[2019-07-22 08:35] VITALS: BP 98/63
[2019-07-22] MEDS: DOCUSATE SODIUM 100 MG (COLACE) CAP PO SCH (08:43)
[2019-07-22] MEDS: FAMOTIDINE 20 MG (PEPCID) TABLET PO SCH (08:43)
--- NOTE | 2019-07-22 08:47 | Postpartum Progress Note ---
Note Note Day # 1 Subjective: Patient is without complaints. Ambulating, voiding. Tolerating a regular diet without nausea or vomiting. Normal lochia. Pain is well controlled with oral pain medications. Objective: Physical Exam: General - Alert and oriented, no apparent distress Abdomen - Soft, appropriately tender to palpation, non-distended, fundus firm at umbilicus Extremities - no edema, negative Ervin's bilaterally Assessment: PPD 1 NVD Acute blood loss anemia Plan: Routine care. Encourage breast feeding. Encourage ambulation. Ferrous sulfate supplementation. Plan for discharge today Vitals - Labs Vital Signs - I&O Vital Signs Date Time Temp Pulse Resp B/P (MAP) Pulse Ox O2 Delivery O2 Flow Rate FiO2 07/22/19 05:34 36.4 70 18 112/69 (83) 100 Room Air 07/22/19 00:05 36.6 56 16 100/52 (68) 98 Room Air 07/21/19 18:37 36.4 58 18 107/68 (81) 99 Room Air 07/21/19 12:55 36.9 75 18 122/86 (98) 97 Room Air 07/21/19 09:35 37.1 64 18 109/66 (80) 97 Room Air Labs Laboratory Tests 07/22/19 06:05: White Blood Count 7.9, Red Blood Count 3.47L, Hemoglobin 10.8L, Hematocrit 33L, Mean Corpuscular Volume 94, Mean Corpuscular Hemoglobin 31, Mean Corpuscular Hemoglobin Concent 33, Red Cell Distribution Width 12.9, Platelet Count 162, Mean Platelet Volume 9.8, Neutrophils (%) (Auto) 61, Lymphocytes (%) (Auto) 27, Monocytes (%) (Auto) 10, Eosinophils (%) (Auto) 2, Basophils (%) (Auto) 1, Neutrophils # (Auto) 4.8, Lymphocytes # (Auto) 2.1, Monocytes # (Auto) 0.8, Eosinophils # (Auto) 0.2, Basophils # (Auto) 0.1 SULAIMAN THOMAS DO Jul 22, 2019 08:47
[2019-07-22 11:35] VITALS: BP 98/63
--- NOTE | 2019-07-22 12:35 | NUR ---
teaching done. Verbalized understanding. Ambulated to exit accompanied by spouse and nursing staff.
== END 2019-07-22 12:35 | disposition home or self-care (01) | DRG 806 ==
LOC: LDRP 22:30
PROVIDERS: ADMIT Obstetrics & Gynecology; ATTEND Obstetrics & Gynecology
PROC: 10E0XZZ Delivery of Products of Conception, External Approach (ICD-10-PCS; principal; 2019-07-21)
PROC: 10907ZC Drainage of Amniotic Fluid, Therapeutic from Products of Conception, Via Natural or Artificial Opening (ICD-10-PCS; 2019-07-21)
PROC: 3E033VJ Introduction of Other Hormone into Peripheral Vein, Percutaneous Approach (ICD-10-PCS; 2019-07-21)
DX: O69.81X0 Labor and delivery complicated by cord around neck, without compression, not applicable or unspecified (principal); Z37.0 Single live birth; D62 Acute posthemorrhagic anemia; O76 Abnormality in fetal heart rate and rhythm complicating labor and delivery; O90.81 Anemia of the puerperium; Z3A.39 39 weeks gestation of pregnancy; Z23 Encounter for immunization
CPT/HCPCS: 36415; 81000; 85025; 86850; 86900; 86901; 90715

== ENCOUNTER 2019-10-18 12:57 | Outpatient (CLI) | payer OTHER ==
[~2019-10-18] VITALS: Ht 182 cm; Wt 72.7 kg
[~2019-10-18 12:57] MED LIST changes: +BENZ78AE2 TP; +DIBU30OI TOP; +FAMO-119 PO; +Hydrocodone Bit/Acetaminophen PO; +IBUP-844 PO
[2019-10-18] MEDS ORDERED: IRON DEXTRAN 25 MG/NS 6.25 ML TOTAL VOLUME IV ONE ×3 (13:30)
[2019-10-18 13:35] VITALS: BP 102/72
[2019-10-18] MEDS ORDERED: IRON DEXTRAN 1,000 MG/NS 250 ML IVPB IV ONE ×2 (13:45)
--- NOTE | 2019-10-18 15:13 | NUR ---
IV IRON INFUSION CONTINUES, PT TOLERATING WITH NO DISCOMFORT OR UNTOWARD SYMPTOMS. IV SITE WITH NO REDNES OR EDEMA OR DISCOLORATION. SECURE. IRON INFUSION, PER PUMP.
--- NOTE | 2019-10-18 16:05 | NUR ---
IRON INFUSED WITH NO PROBLEM, LINE FLUSHED WITH 20 CC OF NS. DISMISSED AMBULATORY TO HOME.
== END 2019-10-18 16:05 | disposition home or self-care (01) ==
LOC: SDC 12:57
PROVIDERS: ATTEND Internal Medicine
DX: D50.9 Iron deficiency anemia, unspecified (principal)
CPT/HCPCS: 96365

== ENCOUNTER 2020-11-27 10:07 | Outpatient (CLI) | payer OTHER ==
[2020-11-27 09:10] VITALS: BP 101/60
[~2020-11-27 10:07] MED LIST changes: -BENZ78AE2 TP; +BENZ78AE5 TP
[2020-11-27] MEDS ORDERED: IRON DEXTRAN 25 MG/NS 6.25 ML TOTAL VOLUME IV ONE ×3 (10:45)
[2020-11-27] MEDS ORDERED: IRON DEXTRAN 1,000 MG/NS 250 ML IVPB IV ONE ×2 (10:45)
== END 2020-11-27 12:45 | disposition home or self-care (01) ==
LOC: SDC 10:07 → EDSTATUS 10:11 → SDC 12:45
PROVIDERS: ATTEND Internal Medicine
DX: E61.1 Iron deficiency (principal)
CPT/HCPCS: 96365

== ENCOUNTER 2021-06-07 13:48 | Outpatient (RCR) | payer OTHER ==
[~2021-06-07 13:48] MED LIST changes: +DOCU-239 PO
== END 2021-06-10 | disposition home or self-care (01) ==
DX: M77.11 Lateral epicondylitis, right elbow (principal)

== ENCOUNTER 2021-07-05 07:58 | Outpatient (RCR) | payer OTHER | END 2021-07-08 | disposition home or self-care (01) | DX: M77.11 Lateral epicondylitis, right elbow (principal) ==

== ENCOUNTER 2021-07-30 09:00 | Outpatient (RCR) | payer OTHER | END 2021-08-08 | disposition home or self-care (01) | DX: M77.11 Lateral epicondylitis, right elbow (principal) ==

== ENCOUNTER → 2021-08-28 | Outpatient (CLI) | payer OTHER | LOC: LABNPT 09:45 | PROVIDERS: ATTEND Obstetrics & Gynecology | DX: Z34.02 Encounter for supervision of normal first pregnancy, second trimester (principal) ==

== ENCOUNTER 2021-09-04 09:15 | Outpatient (RCR) | payer OTHER ==
[~2021-09-04 09:15] MED LIST changes: +ACET-11 PO; -ACET1TAB43 PO
== END 2021-09-07 | disposition home or self-care (01) ==
DX: M77.11 Lateral epicondylitis, right elbow (principal)

== ENCOUNTER 2021-09-25 08:48 | Outpatient (RCR) | payer OTHER | END 2021-10-08 | disposition home or self-care (01) | DX: M77.11 Lateral epicondylitis, right elbow (principal) ==

== ENCOUNTER → 2021-09-25 | Outpatient (CLI) | payer OTHER ==
--- NOTE | 2021-09-25 16:44 | Diagnostic Imaging Report ---
INDICATION: patient, survey. TECHNIQUE: OB sonography was performed in the routine fashion. TECHNIQUE: Multiple Real-time grayscale images were obtained over the gravid uterus. COMPARISON: None during this . FINDINGS: A single live intrauterine fetus is seen measuring 21 weeks 3 days in size with a sonographic EDC of 02/02/2022. The fetus is in variable presentation. The placenta is posterior with the placental tip about 3.2 cm above the internal os. The cervical length is 5.0 cm. The heart rate is 146 BPM. There is no subchorionic bleed. The maternal adnexa were not well seen but showed no free fluid. The survey shows normal-appearing kidneys and bladder. A normal-appearing stomach is seen. Normal-appearing intracranial ventricles are seen. The four-chamber heart view is normal. The three-vessel cord and cord insertion are normal. The spine appears grossly unremarkable. Biometrical measurements are as follows: Biparietal 5.15 cm, age 21 weeks 5 days. Head circumference 19.16 cm, age 21 weeks 3 days. Abdominal circumference 16.08 cm, age 21 weeks 2 days. Femur length 3.52 cm, age 21 weeks 1 days. Sonographic estimate age: 21 weeks 3 days. Sonographic estimated date of delivery: 02/02/2022. Estimated Weight: 406 gm (+/- 59 gm). LMP percentile: 90%. heart rate: 146 beats per minute. number: 1 of 1. IMPRESSION: Single live intrauterine fetus measuring at 21 weeks 3 days in size. survey shows no detectable abnormality. Dictated by: Dictated on workstation # [id number]
== END ==
LOC: RAD 14:58
PROVIDERS: ATTEND Obstetrics & Gynecology
DX: Z34.02 Encounter for supervision of normal first pregnancy, second trimester (principal); Z3A.21 21 weeks gestation of pregnancy
CPT/HCPCS: 76805

== ENCOUNTER 2021-10-23 13:47 | Outpatient (RCR) | payer OTHER | END 2021-11-07 | disposition home or self-care (01) | DX: M77.11 Lateral epicondylitis, right elbow (principal) ==

== ENCOUNTER 2022-01-30 18:28 | Inpatient (IN) | payer OTHER ==
[2022-01-30] VITALS (21 sets, daily range): BP systolic 95–136; BP diastolic 50–79
[~2022-01-30] VITALS: Ht 177.8 cm; Wt 97.2 kg
[2022-01-30] MEDS ORDERED: D5 LR IV SOLUTION 1,000 ML IV SCH (19:00)
[2022-01-30] MEDS ORDERED: MINERAL OIL 30 ML UDC TOP PRN (19:00)
[2022-01-30 19:03] LABS: BASOPHILS % (AUTO) 1 % (0-10); EOSINOPHILS # (AUTO) 0.1 10^3/uL (0.0-0.3); EOSINOPHILS % (AUTO) 1 % (0-10); HEMATOCRIT 36 % (35-52); HEMOGLOBIN 12.5 g/dL (11.5-16.0); LYMPHOCYTES # (AUTO) 1.5 10^3/uL (1.0-4.0); LYMPHOCYTES % (AUTO) 21 % (12-44); MEAN CORPUSCULAR HEMOGLOBIN 31 pg (25-34); MEAN CORPUSCULAR HGB CONC 35 g/dL (32-36); MEAN CORPUSCULAR VOLUME 89 fL (80-99); MEAN PLATELET VOLUME 10.7 fL (9.0-12.2); MONOCYTES # (AUTO) 0.7 10^3/uL (0.0-1.0); MONOCYTES % (AUTO) 9 % (0-12); NEUTROPHILS # (AUTO) 4.9 10^3/uL (1.8-7.8); NEUTROPHILS % (AUTO) 67 % (42-75); PLATELET COUNT 187 10^3/uL (130-400); WHITE BLOOD COUNT 7.2 10^3/uL (4.3-11.0)
[2022-01-30] MEDS ORDERED: fentaNYL 2 mcg/ml BUPIVA 0.125 0 ML ONE (19:05)
[2022-01-30] MEDS ORDERED: LIDOCAINE/EPI 2% 1:200,00 (XYLOCAINE) 10 ML VIAL ONE (19:20)
[2022-01-30] MEDS ORDERED: OXYTOCIN PRE-MIX DRIP 500 ML IV ONE (19:20)
--- NOTE | 2022-01-30 19:25 | History & Physical ---
History and Physical Date Seen by Provider: Jan 30, 2022 Time Seen by Provider: 19:24 This patient is a 37-year-old 6 para 5 female who presents at 38+ weeks gestation at 6 cm dilated and in active labor with feeling pain pressure and urge to push.Her has been uncomplicated to date. Her GBS culture was negative.She denies rupture membranes or bleeding. Allergies are none Medications are vitamins and Lexapro Medical social and surgical history is all per the antepartum record HEENT exam is normal Alcohol level and no thyromegaly abdomen is gravid soft nontender nondistended Extremities show no clubbing or cyanosis. There is no Homans' sign. Pelvic exam per the admitting nurse on presentation patient was 6 cm she currently is 7 to 8 cm and feeling increased pressure. Bedside ultrasound confirmed vertex presentation with an exceedingly full bladder. Assessment and plan Term at 38+ weeks gestation and active labor with advanced dilation we anticipate delivery is eminent 38-week in labor Allergies and Home Medications Allergies Coded Allergies: No Known Drug Allergies (Unverified , 09/05/13) Patient Home Medication List Home Medication List Reviewed: Yes Benzocaine/Menthol (Dermoplast Pain Relieving [place]) 78 Gm Aerosol, 56 ML TP UD PRN for PAIN- SEE INSTRUCTIONS Prescribed by: SULAIMAN THOMAS on 07/21/19414 Dibucaine (Dibucaine) 30 Gm Oint, 0 GM TOP UD PRN for PAIN- SEE INSTRUCTIONS Prescribed by: SULAIMAN THOMAS on 07/21/19414 Docusate Sodium (Dok) 100 Mg Capsule, 100 MG PO BID PRN for CONSTIPATION-1ST LINE Prescribed by: SULAIMAN THOMAS on 07/21/19 041 Doxylamine Succinate (Unisom Sleep Aid) 25 Mg Tablet, 25 MG PO HS, (Reported) Entered as Reported by: ROD OH on 05/21/17 1045 Famotidine (Pepcid) 20 Mg Tablet, 20 MG PO PRN, (Reported) Entered as Reported by: EV FORBES on 07/20/19 0400 Ibuprofen (Ibu) 600 Mg Tablet, 600 MG PO Q6HR Prescribed by: SULAIMAN THOMAS on 07/21/19 041 Vit/Iron Fumarate/FA ( Tablet) 1 Each Tablet, 1 EACH PO DAILY, (Reported) Entered as Reported by: SUSAN MARTINEZ on 03/22/15 0814 Vit B6/Mag Cit & Ox/Potass Cit (Theralith Xr Tablet) 1 Each Tablet.er, 1 EACH PO DAILY, (Reported) Entered as Reported by: ROD OH on 05/21/17 1045 [Hydrocodone Bit/Acetaminophen] Y TAB, 1 TAB PO Q4HR PRN for PAIN-MODERATE (5-7) Prescribed by: SULAIMAN THOMAS on 07/21/19 0415 GAB LINARES MD Jan 30, 2022 19:25
[2022-01-30] MEDS ORDERED: Hydrocodone Bit/Acetaminophen PO (19:32)
--- NOTE | 2022-01-30 19:33 | Discharge Inst-Surgical ---
Discharge Inst-Surgical Depart Medication/Instructions New, Converted or Re-Newed RX: Other Consults/Follow Up Patient Instructions: As directed Orders & Referrals Follow Up Appt: Call to make follow up appt. for patient in [address] Quinonez Activity Per routine post vaginal delivery instructions. Diet as tolerated Patient may shower or tub bathe as desired. Activity Activity as Tolerated: No Diet Discharge Diet: No Restrictions GAB LINARES MD Jan 30, 2022 19:33
[2022-01-30] MEDS ORDERED: fentaNYL INJ 100 MCG/2 ML AMP ONE (19:40)
[2022-01-30] MEDS ORDERED: HYDROcodone/APAP 5 MG/325 MG (LORTAB) TAB PO PRN (19:45)
[2022-01-30] MEDS ORDERED: OXYTOCIN PRE-MIX DRIP 500 ML IV SCH ×2 (19:45→22:45)
[2022-01-30] MEDS ORDERED: CATHETER FLUSH 10 ML SYR IV SCH (22:00)
[2022-01-30] MEDS ORDERED: ONDANSETRON 4 MG/2 ML (SDV) Z0FRAN IVP PRN (22:45)
[2022-01-30] MEDS ORDERED: oxyCODONE/APAP 5/325MG (PERCOCET 5) TABLET PO PRN (22:45)
[2022-01-30] MEDS ORDERED: BENZOCAINE/MENTHOL (DERMOPLAST) 56 ML CAN TP PRN (22:45)
[2022-01-30] MEDS ORDERED: BENZOCAINE/MENTHOL (DERMOPLAST) 56 ML CAN TP ONE (22:49)
[2022-01-30] MEDS: KETOROLAC 30 MG/ML VIAL IV SCH (23:09)
[2022-01-31 02:20] VITALS: BP 119/72
[2022-01-31] MEDS: IBUPROFEN 800 MG (MOTRIN) TAB PO SCH ×5 (04:43→22:04)
[2022-01-31 04:48] VITALS: BP 108/73
[2022-01-31] MEDS: KETOROLAC 30 MG/ML VIAL IV SCH (04:55)
[2022-01-31 08:52] VITALS: BP 127/75
[2022-01-31] MEDS: DOCUSATE SODIUM 100 MG (COLACE) CAP PO SCH ×2 (08:56→22:04)
--- NOTE | 2022-01-31 08:56 | Progress Note ---
Standard Progress Note Progress Notes/Assess & Plan Date Seen by a Provider: Jan 31, 2022 Time Seen by a Provider: 08:54 Progress/Assessment & Plan This patient is without complaint. She is ambulating, voiding, tolerating oral intake well and has good pain control. Patient denies chest pain, denies shortness of breath, denies nausea and vomiting, and denies headache. Vital Signs Date Time Temp Pulse Resp B/P (MAP) Pulse Ox O2 Delivery O2 Flow Rate FiO2 01/31/22 08:52 36.1 60 16 127/75 (92) 97 Room Air 01/31/22 04:48 36.4 53 16 108/73 (85) 98 Room Air 01/31/22 02:20 36.3 54 18 119/72 (88) 98 Room Air 01/30/22 22:40 62 18 101/68 (79) Room Air 01/30/22 22:26 18 100/61 (74) Room Air 01/30/22 22:18 60 18 107/66 (80) Room Air 01/30/22 22:15 36.6 65 18 95/50 (65) Room Air 01/30/22 22:00 59 18 98/53 (68) Room Air 01/30/22 21:59 71 18 119/56 (77) Room Air 01/30/22 21:45 61 18 114/63 (80) Room Air 01/30/22 21:30 65 18 115/64 (81) Room Air 01/30/22 21:15 58 18 110/62 (78) Room Air 01/30/22 21:00 63 18 116/68 (84) Room Air 01/30/22 20:45 67 18 124/76 (92) Room Air 01/30/22 20:30 64 18 122/79 (93) 97 Room Air 01/30/22 20:15 72 18 127/77 (94) 97 Room Air 01/30/22 20:06 67 18 124/77 (93) 97 Room Air 01/30/22 20:03 72 18 125/75 (92) 97 Room Air 01/30/22 20:00 67 18 126/76 (93) 98 Room Air 01/30/22 19:58 65 18 116/70 (85) 98 Room Air 01/30/22 19:55 65 18 119/70 (86) 98 Room Air 01/30/22 19:50 70 18 136/71 (92) 97 Room Air 01/30/22 19:03 37.2 69 18 117/68 (84) Room Air 01/30/22 19:00 37.2 69 18 98 Room Air I & O 01/31/22 07:00 Intake Total 500 ml Balance 500 ml Vital signs are stable. Patient is afebrile. The abdomen is benign. Extremities show no clubbing or cyanosis. There is no Homans' sign. Pelvic exam was deferred Assessment and plan day #1 status post term spontaneous vaginal livery doing well. Plan is for routine convalescent care Final Diagnosis 38-week spontaneous vaginal delivery GAB LINARES MD Jan 31, 2022 08:55
--- NOTE | 2022-01-31 08:58 | OB Labor & Delivery Record ---
Labor & Delivery This patient delivered by term spontaneous vaginal delivery at 38+ weeks gestation a viable female with Apgars of 8 and 9 at 1 time expected weight of 9 pounds 4 ounces time of 2122 and a cord blood pH of 7.30. The infant was delivered over a first-degree perineal laceration under intrathecal regional analgesia. The infant was bulb suctioned on delivery of the head again on completion of delivery. Umbilical cord was doubly clamped the father cut the cord the baby was passed to mom abdomen. Cord bloods were obtained the placenta delivered spontaneously [place], it was a battledore placenta with a three-vessel cord. Placenta was sent to pathology for permanent section. Cervix vagina rectum perineum examined and found intact except for a first- degree perineal laceration that was repaired with a single suture of 3-0 Vicryl repeat in the usual manner to good hemostasis and good reapproximation. Patient had fairly notable distal vaginal edema and varicosities. Sponge and needle counts were correct on completion of the delivery and repair. Blood loss was around 350 cc. Patient tolerated delivery and repair well and remained in the LDR for recovery. The baby remained with mild MILAGROSGAB CORREA MD Jan 31, 2022 08:58
--- NOTE | 2022-01-31 10:01 | Anesthesia-Regional Post-Op ---
Regional Patient Condition Mental Status: Alert, Oriented x3 Circulation: Same as Pre-Op Headache: Absent Sensation: Full Recovery Motor Block: Absent Post Op Complications Complications None Follow Up Care/Instructions Patient Instructions None needed. Anesthesia/Patient Condition Patient is doing well, no complaints, stable vital signs, no apparent adverse anesthesia problems. No complications reported per nursing. JAREK ZAMORA CRNA Jan 31, 2022 10:01
[2022-01-31 11:33] VITALS: BP 127/68
[2022-01-31 16:28] VITALS: BP 109/66
[2022-01-31 22:07] VITALS: BP 121/70
[2022-02-01] MEDS: IBUPROFEN 800 MG (MOTRIN) TAB PO SCH (04:08)
[2022-02-01 04:41] VITALS: BP 109/68
[2022-02-01 08:00] VITALS: BP 118/74
--- NOTE | 2022-02-01 08:42 | Progress Note ---
Standard Progress Note Progress Notes/Assess & Plan Date Seen by a Provider: Feb 01, 2022 Time Seen by a Provider: 08:40 Progress/Assessment & Plan This patient is without complaint. She is ambulating, voiding, tolerating oral intake well and has good pain control. Patient denies chest pain, denies shortness of breath, denies nausea and vomiting, and denies headache. Vital Signs Date Time Temp Pulse Resp B/P (MAP) Pulse Ox O2 Delivery O2 Flow Rate FiO2 01/31/22 08:52 36.1 60 16 127/75 (92) 97 Room Air 01/31/22 04:48 36.4 53 16 108/73 (85) 98 Room Air 01/31/22 02:20 36.3 54 18 119/72 (88) 98 Room Air 01/30/22 22:40 62 18 101/68 (79) Room Air 01/30/22 22:26 18 100/61 (74) Room Air 01/30/22 22:18 60 18 107/66 (80) Room Air 01/30/22 22:15 36.6 65 18 95/50 (65) Room Air 01/30/22 22:00 59 18 98/53 (68) Room Air 01/30/22 21:59 71 18 119/56 (77) Room Air 01/30/22 21:45 61 18 114/63 (80) Room Air 01/30/22 21:30 65 18 115/64 (81) Room Air 01/30/22 21:15 58 18 110/62 (78) Room Air 01/30/22 21:00 63 18 116/68 (84) Room Air 01/30/22 20:45 67 18 124/76 (92) Room Air 01/30/22 20:30 64 18 122/79 (93) 97 Room Air 01/30/22 20:15 72 18 127/77 (94) 97 Room Air 01/30/22 20:06 67 18 124/77 (93) 97 Room Air 01/30/22 20:03 72 18 125/75 (92) 97 Room Air 01/30/22 20:00 67 18 126/76 (93) 98 Room Air 01/30/22 19:58 65 18 116/70 (85) 98 Room Air 01/30/22 19:55 65 18 119/70 (86) 98 Room Air 01/30/22 19:50 70 18 136/71 (92) 97 Room Air 01/30/22 19:03 37.2 69 18 117/68 (84) Room Air 01/30/22 19:00 37.2 69 18 98 Room Air I & O 01/31/22 07:00 Intake Total 500 ml Balance 500 ml Vital signs are stable. Patient is afebrile. The abdomen is benign. Extremities show no clubbing or cyanosis. There is no Homans' sign. Pelvic exam was deferred Assessment and plan day #1 status post term spontaneous vaginal livery doing well. Plan is for routine convalescent care February 01, 2022 Patient is without complaint. She is ambulating, voiding, tolerating oral intake without and has good pain control. Patient is requesting discharge home. Vital Signs Date Time Temp Pulse Resp B/P (MAP) Pulse Ox O2 Delivery O2 Flow Rate FiO2 02/01/22 08:00 36.6 59 18 118/74 (89) 99 Room Air 02/01/22 04:41 37.0 51 16 109/68 (82) 98 Room Air 01/31/22 22:07 36.3 73 18 121/70 (87) 100 Room Air 01/31/22 16:28 37.2 60 16 109/66 (80) 99 Room Air 01/31/22 11:33 36.3 58 16 127/68 (87) 99 Room Air 01/31/22 08:52 36.1 60 16 127/75 (92) 97 Room Air Physical exam is deferred as patient is up ambulating Assessment and plan day #2 status post term spontaneous vaginal delivery doing well. Plans for discharge home with follow-up in clinic Final Diagnosis 38-week spontaneous vaginal delivery GAB LINARES MD Feb 01, 2022 08:42
[2022-02-01] MEDS ORDERED: IBUP-1780 PO (09:13)
[2022-02-01] MEDS ORDERED: ACHD5005 PO (09:13)
[2022-02-01] MEDS ORDERED: DOCU100C37 PO (09:13)
[2022-02-01] MEDS: DOCUSATE SODIUM 100 MG (COLACE) CAP PO SCH (09:15)
== END 2022-02-01 09:30 | disposition home or self-care (01) | DRG 807 ==
LOC: LDRP 18:28 → WSo 18:28 → LDRP 18:48
PROVIDERS: ADMIT Obstetrics & Gynecology; ATTEND Obstetrics & Gynecology
PROC: 10E0XZZ Delivery of Products of Conception, External Approach (ICD-10-PCS; principal; 2022-01-31)
PROC: 0HQ9XZZ Repair Perineum Skin, External Approach (ICD-10-PCS; 2022-01-31)
DX: O70.0 First degree perineal laceration during delivery (principal); Z37.0 Single live birth; Z3A.38 38 weeks gestation of pregnancy
CPT/HCPCS: 36415; 83033; 85025; 86850; 86900; 86901

== ENCOUNTER 2022-03-31 11:49 | Outpatient (RCR) | payer OTHER ==
[~2022-03-31 11:49] MED LIST changes: +IBUP-1780 PO
== END 2022-04-09 | disposition home or self-care (01) ==
DX: M77.11 Lateral epicondylitis, right elbow (principal)

== ENCOUNTER 2022-04-15 10:14 | Outpatient (RCR) | payer OTHER | END 2022-05-10 | disposition home or self-care (01) | DX: M77.11 Lateral epicondylitis, right elbow (principal) ==

== ENCOUNTER 2022-06-02 10:08 | Outpatient (CLI) | payer OTHER ==
[~2022-06-02] VITALS: Ht 177.8 cm; Wt 97.2 kg
[2022-06-02 10:13] VITALS: BP 114/68
[2022-06-02] MEDS ORDERED: IRON DEXTRAN 25 MG/NS 6.25 ML TOTAL VOLUME IV NR ×3 (10:30)
[2022-06-02] MEDS ORDERED: ALPR.25T PO (10:58)
[2022-06-02] MEDS ORDERED: ESCI20TA PO (10:58)
[2022-06-02] MEDS ORDERED: CYAN-23 PO (10:58)
[2022-06-02] MEDS ORDERED: MULT-1136 PO (10:58)
[2022-06-02] MEDS ORDERED: IRON DEXTRAN 1,000 MG/NS 250 ML IVPB IV NR ×2 (11:00)
== END 2022-06-02 12:15 | disposition home or self-care (01) ==
LOC: SDC 10:08
PROVIDERS: ATTEND Internal Medicine
DX: D50.9 Iron deficiency anemia, unspecified (principal)
CPT/HCPCS: 96365

== ENCOUNTER → 2022-09-03 | Outpatient (CLI) | payer OTHER ==
[~2022-09-03] MED LIST changes: +ALPR.25T PO; +CYAN-23 PO; +ESCI20TA PO; +MULT-1136 PO
--- NOTE | 2022-09-03 15:32 | Diagnostic Imaging Report ---
INDICATION: Palpable lump in the right breast. COMPARISON: Correlation is made with the diagnostic mammogram from earlier this same day. FINDINGS: Sonographic interrogation of the upper outer right breast was performed. At the area of palpable abnormality, there is a hypoechoic mass at the 10 o'clock location 3 cm from the nipple measuring 1.8 x 1.0 x 1.7 cm. This does show some posterior acoustic enhancement but the margins are somewhat irregular. In addition, there is increased internal vascularity. There are two additional hypoechoic nodules, one of which is at the 10 to 10:30 o'clock location 2 cm from the nipple measuring 1.2 x 0.6 x 1.1 cm. A second nodule is at the 12 o'clock location 1 cm from the nipple measuring 0.8 x 0.5 x 0.9 cm. These are concerning for satellite nodules. No cystic masses are seen. The right axilla was evaluated and there is an enlarged lymph node measuring 2.2 x 1.1 x 1.8 cm which does show a thickened capsule. IMPRESSION: There is a dominant, solid, and slightly irregular hypoechoic mass at the area of palpable abnormality at the 10 o'clock location of the right breast 3 cm from the nipple. Tissue sampling of this lesion would be recommended. There are two additional solid nodules which are concerning for satellite nodules. In addition, there is an enlarged right axillary lymph node. The possibility of a metastatic node cannot be entirely excluded. Tissue sampling of the palpable nodule as well as the right axillary lymph node is recommended and would be amenable to an ultrasound approach. ACR BI-RADS Category 4: Suspicious abnormality. Dictated by: Dictated on workstation # [id number]
--- NOTE | 2022-09-03 15:34 | Diagnostic Imaging Report ---
INDICATION: Palpable lump in the right breast. COMPARISON: Prior mammogram of 07/13/2017. TECHNIQUE: 2D and 3D bilateral diagnostic mammography was performed with CAD. This includes conventional CC and MLO views bilaterally. In addition, spot compression CC and ML views of the right breast as well as conventional 90 degree lateral views of the right breast were obtained. FINDINGS: A BB marker was placed at the area of palpable abnormality in the upper outer right breast. There is a mass in the upper outer right breast, likely accounting for the mammographic abnormality. A smaller nodule just anterior to the dominant mass is also seen. There is also a nodular density just lateral to the nipple line on the CC view and within the nipple line on the MLO view in the posterior breast. There are innumerable microcalcifications throughout the right breast which are new since the prior exam from 2018. These are noted in both the inferior and superior segments of the breast but appear to be predominantly outer. Calcifications do show pleomorphism and many appear to be clustered, concerning for DCIS. The left breast is unremarkable. The axillae are unremarkable. IMPRESSION: 1. Lobulated mass in the upper outer right breast at posterior depth accounting for the palpable abnormality. There appear to be two additional smaller nodules in the upper outer as well as upper central right breast. Further evaluation of these areas with ultrasound is recommended and will be performed today. 2. 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 ACR BI-RADS Category 0: Incomplete. (Needs additional imaging evaluation). Result letter will be mailed to the patient. Note: At least 10% of breast cancer is not imaged by mammography. Dictated by: Dictated on workstation # [id number]
== END ==
LOC: RAD 13:10
PROVIDERS: ATTEND Surgery
DX: N63.11 Unspecified lump in the right breast, upper outer quadrant (principal)
CPT/HCPCS: 76642; 77066; G0279; 77062

== ENCOUNTER → 2022-09-04 | Outpatient (CLI) | payer OTHER ==
[~2022-09-04] VITALS: Ht 177.8 cm; Wt 70.5 kg
[~2022-09-04] MED LIST changes: +LIDOCAINE 1% INJ 10 ML VIAL INJ ONE; +LIDOCAINE 1% INJ 10 ML VIAL ONE
--- NOTE | 2022-09-04 12:11 | Diagnostic Imaging Report ---
INDICATION: Enlarged right axillary lymph node. Patient presents for ultrasound guided core biopsy. Right axilla was prepped and draped in usual sterile fashion. Small amount of 1% lidocaine was utilized for local anesthesia. A total of 4 core biopsies were obtained of the enlarged right axillary lymph node utilizing 14-gauge Achieve needle. A marker clip was then deployed. Hemostasis was obtained using manual compression. Patient tolerated the procedure well and left the department stable condition. IMPRESSION: Successful ultrasound guided core biopsy of enlarged right axillary lymph node. Pathology results are currently pending. Dictated by: Dictated on workstation # [id number]
--- NOTE | 2022-09-04 12:38 | Diagnostic Imaging Report ---
INDICATION: Right breast mass. EXAM: The patient presents for ultrasound-guided biopsy. The patient was brought to the sonographic suite and placed on the table in the supine position. Ultrasound imaging of the right breast was performed to evaluate appropriate entry site. The right breast was prepped and draped in the usual sterile fashion. A small amount of 1% lidocaine was utilized for local anesthesia. A total of 4 core biopsies were obtained of the dominant hypoechoic mass at the 10:00 location of the right breast utilizing a 14-gauge Achieve needle. A marker clip was then deployed. The needle was removed and hemostasis was obtained. The patient tolerated the procedure well. IMPRESSION: Successful ultrasound guided core biopsy of the dominant solid mass at the 10:00 location of the right breast. Pathology results are currently pending. Dictated by: Dictated on workstation # [id number]
== END ==
LOC: RAD 10:18
PROVIDERS: ATTEND Surgery
DX: N63.11 Unspecified lump in the right breast, upper outer quadrant (principal); R59.0 Localized enlarged lymph nodes
CPT/HCPCS: 19083; 76942

== ENCOUNTER 2022-09-09 17:19 | Outpatient (RCR) | payer OTHER ==
[~2022-09-09 17:19] MED LIST changes: -LIDOCAINE 1% INJ 10 ML VIAL INJ ONE; -LIDOCAINE 1% INJ 10 ML VIAL ONE
== END 2022-10-08 | disposition home or self-care (01) ==
LOC: ONC 17:19
PROVIDERS: ATTEND Internal Medicine Hematology & Oncology
DX: Z53.9 Procedure and treatment not carried out, unspecified reason (principal)

== ENCOUNTER → 2022-09-29 | Outpatient (CLI) | payer OTHER ==
[2022-09-29 15:15] LABS: BASOPHILS % (AUTO) 1 % (0-10); EOSINOPHILS # (AUTO) 0.1 10^3/uL (0.0-0.3); EOSINOPHILS % (AUTO) 2 % (0-10); HEMATOCRIT 35 % (35-52); HEMOGLOBIN 11.7 g/dL (11.5-16.0); LYMPHOCYTES # (AUTO) 1.4 10^3/uL (1.0-4.0); LYMPHOCYTES % (AUTO) 25 % (12-44); MEAN CORPUSCULAR HEMOGLOBIN 30 pg (25-34); MEAN CORPUSCULAR HGB CONC 34 g/dL (32-36); MEAN CORPUSCULAR VOLUME 89 fL (80-99); MEAN PLATELET VOLUME 9.1 fL (9.0-12.2); MONOCYTES # (AUTO) 0.4 10^3/uL (0.0-1.0); MONOCYTES % (AUTO) 6 % (0-12); NEUTROPHILS # (AUTO) 3.9 10^3/uL (1.8-7.8); NEUTROPHILS % (AUTO) 67 % (42-75); PLATELET COUNT 227 10^3/uL (130-400); WHITE BLOOD COUNT 5.8 10^3/uL (4.3-11.0)
[2022-09-29 15:42] LABS: ALBUMIN 4.4 GM/DL (3.2-4.5); BILIRUBIN,TOTAL 0.5 MG/DL (0.1-1.0); CALCIUM 9.2 MG/DL (8.5-10.1); CREATININE SERUM 0.8 MG/DL (0.60-1.30); POTASSIUM 3.6 MMOL/L (3.6-5.0); TOTAL PROTEIN 7.1 GM/DL (6.4-8.2)
== END ==
LOC: LAB 14:53
DX: Z01.818 Encounter for other preprocedural examination (principal)
CPT/HCPCS: 36415; 80053; 85025

== ENCOUNTER 2022-10-27 09:57 | Outpatient (RCR) | payer OTHER | END 2022-11-07 | disposition home or self-care (01) | LOC: ONC 09:57 | PROVIDERS: ATTEND Internal Medicine Hematology & Oncology | DX: C50.811 Malignant neoplasm of overlapping sites of right female breast (principal); Z17.0 Estrogen receptor positive status [ER+] | CPT/HCPCS: 99205 ==

== ENCOUNTER → 2022-12-08 | Outpatient (RCR) | payer OTHER ==
[2022-11-25 10:15] VITALS: BP 104/74
[2022-11-25 10:28] LABS: BASOPHILS # (AUTO) 0.1 10^3/uL (0.0-0.1); BASOPHILS % (AUTO) 1 % (0-10); EOSINOPHILS # (AUTO) 0.2 10^3/uL (0.0-0.3); EOSINOPHILS % (AUTO) 3 % (0-10); HEMATOCRIT 39 % (35-52); LYMPHOCYTES # (AUTO) 1.2 10^3/uL (1.0-4.0); LYMPHOCYTES % (AUTO) 27 % (12-44); MEAN CORPUSCULAR HEMOGLOBIN 30 pg (25-34); MEAN CORPUSCULAR HGB CONC 33 g/dL (32-36); MEAN CORPUSCULAR VOLUME 89 fL (80-99); MEAN PLATELET VOLUME 9.1 fL (9.0-12.2); MONOCYTES # (AUTO) 0.5 10^3/uL (0.0-1.0); MONOCYTES % (AUTO) 10 % (0-12); NEUTROPHILS # (AUTO) 2.5 10^3/uL (1.8-7.8); NEUTROPHILS % (AUTO) 58 % (42-75); PLATELET COUNT 280 10^3/uL (130-400); WHITE BLOOD COUNT 4.4 10^3/uL (4.3-11.0)
[2022-11-25 10:48] LABS: ALANINE AMINOTRANSFERASE 15 U/L (0-55); ALBUMIN 4.6 GM/DL (3.2-4.5); ALKALINE PHOSPHATASE 46 U/L (40-136); BILIRUBIN,TOTAL 0.9 MG/DL (0.1-1.0); BUN/CREATININE RATIO 19; CALCIUM 9.1 MG/DL (8.5-10.1); CARBON DIOXIDE 21 MMOL/L (21-32); CHLORIDE 104 MMOL/L (98-107); CREATININE SERUM 0.79 MG/DL (0.60-1.30); GFR ESTIMATED 99; GLUCOSE 79 MG/DL (70-105); POTASSIUM 3.8 MMOL/L (3.6-5.0); SODIUM 136 MMOL/L (135-145); TOTAL PROTEIN 7.5 GM/DL (6.4-8.2)
[2022-11-25] MEDS: DEXAMETHASONE SODIUM PHOSPHATE IV SCH (10:50)
[2022-11-25] MEDS: ONDANSETRON IV SCH (10:50)
[2022-11-25] MEDS: diphenhydrAMINE INJ 50 MG/ML VIAL IV PRN (10:50)
[2022-11-25] MEDS: FAMOTIDINE INJ 20MG/2ML VIAL IV SCH (10:50)
[2022-11-25] MEDS: NS IV 1000 ML (CANCER CTR) IV SCH (10:50)
[2022-11-25] MEDS: [UNRECOGNIZED DRUG - OTHER] IV SCH (10:50)
[2022-11-25] MEDS: PACLITAXEL IV SCH (11:14)
[2022-11-25] MEDS: NORMAL SALINE IV SCH (11:14)
[2022-12-01 10:03] LABS: BASOPHILS % (AUTO) 1 % (0-10); EOSINOPHILS # (AUTO) 0.2 10^3/uL (0.0-0.3); EOSINOPHILS % (AUTO) 3 % (0-10); HEMATOCRIT 37 % (35-52); HEMOGLOBIN 12.4 g/dL (11.5-16.0); LYMPHOCYTES # (AUTO) 0.9 10^3/uL (1.0-4.0); LYMPHOCYTES % (AUTO) 18 % (12-44); MEAN CORPUSCULAR HEMOGLOBIN 30 pg (25-34); MEAN CORPUSCULAR HGB CONC 34 g/dL (32-36); MEAN CORPUSCULAR VOLUME 89 fL (80-99); MEAN PLATELET VOLUME 9.8 fL (9.0-12.2); MONOCYTES # (AUTO) 0.2 10^3/uL (0.0-1.0); MONOCYTES % (AUTO) 4 % (0-12); NEUTROPHILS # (AUTO) 3.4 10^3/uL (1.8-7.8); NEUTROPHILS % (AUTO) 74 % (42-75); PLATELET COUNT 222 10^3/uL (130-400); WHITE BLOOD COUNT 4.7 10^3/uL (4.3-11.0)
[2022-12-01 10:26] LABS: ALBUMIN 4.4 GM/DL (3.2-4.5); BILIRUBIN,TOTAL 0.8 MG/DL (0.1-1.0); CALCIUM 9.1 MG/DL (8.5-10.1); CREATININE SERUM 0.78 MG/DL (0.60-1.30); POTASSIUM 4.4 MMOL/L (3.6-5.0); TOTAL PROTEIN 7.2 GM/DL (6.4-8.2)
[2022-12-02 09:10] VITALS: BP 112/72
[2022-12-02] MEDS: NS IV 1000 ML (CANCER CTR) IV SCH (09:15)
[2022-12-02] MEDS: FAMOTIDINE INJ 20MG/2ML VIAL IV SCH (09:15)
[2022-12-02] MEDS: diphenhydrAMINE INJ 50 MG/ML VIAL IV PRN (09:15)
[2022-12-02] MEDS: [UNRECOGNIZED DRUG - OTHER] IV SCH (09:16)
[2022-12-02] MEDS: DEXAMETHASONE SODIUM PHOSPHATE IV SCH (09:16)
[2022-12-02] MEDS: ONDANSETRON IV SCH (09:16)
[2022-12-02] MEDS: NORMAL SALINE IV SCH (09:40)
[2022-12-02] MEDS: PACLITAXEL IV SCH (09:40)
[~2022-12-08] VITALS: Ht 177.8 cm; Wt 71.8 kg
[~2022-12-08] MED LIST changes: +HEParin (CENTRAL IV FLUSH) 500 UNIT/5 ML SYR IV PRN
[2022-12-08 09:34] LABS: BASOPHILS % (AUTO) 1 % (0-10); EOSINOPHILS # (AUTO) 0.1 10^3/uL (0.0-0.3); EOSINOPHILS % (AUTO) 3 % (0-10); HEMATOCRIT 36 % (35-52); HEMOGLOBIN 11.6 g/dL (11.5-16.0); LYMPHOCYTES # (AUTO) 0.9 10^3/uL (1.0-4.0); LYMPHOCYTES % (AUTO) 22 % (12-44); MEAN CORPUSCULAR HEMOGLOBIN 29 pg (25-34); MEAN CORPUSCULAR HGB CONC 32 g/dL (32-36); MEAN CORPUSCULAR VOLUME 91 fL (80-99); MEAN PLATELET VOLUME 9.6 fL (9.0-12.2); MONOCYTES # (AUTO) 0.2 10^3/uL (0.0-1.0); MONOCYTES % (AUTO) 5 % (0-12); NEUTROPHILS # (AUTO) 2.7 10^3/uL (1.8-7.8); NEUTROPHILS % (AUTO) 69 % (42-75); PLATELET COUNT 249 10^3/uL (130-400); WHITE BLOOD COUNT 3.9 10^3/uL (4.3-11.0)
[2022-12-08 09:48] LABS: ALBUMIN 4.3 GM/DL (3.2-4.5); BILIRUBIN,TOTAL 0.3 MG/DL (0.1-1.0); CREATININE SERUM 0.8 MG/DL (0.60-1.30); POTASSIUM 3.8 MMOL/L (3.6-5.0); TOTAL PROTEIN 6.9 GM/DL (6.4-8.2)
== END | disposition home or self-care (01) ==
LOC: ONC 11-12 10:11
PROVIDERS: ATTEND Internal Medicine Hematology & Oncology
DX: Z51.11 Encounter for antineoplastic chemotherapy (principal); Z45.2 Encounter for adjustment and management of vascular access device; C50.911 Malignant neoplasm of unspecified site of right female breast
CPT/HCPCS: 36415; 36591; 80053; 85025; 96375; 96413; 96523

== ENCOUNTER → 2022-12-31 | Outpatient (CLI) | payer OTHER ==
[~2022-12-31] MED LIST changes: -HEParin (CENTRAL IV FLUSH) 500 UNIT/5 ML SYR IV PRN
== END ==
LOC: CARD 08:30
PROVIDERS: ATTEND Internal Medicine Hematology & Oncology
DX: C50.911 Malignant neoplasm of unspecified site of right female breast (principal)
CPT/HCPCS: 93306

== ENCOUNTER 2023-01-06 07:39 | Outpatient (RCR) | payer OTHER ==
[2022-12-09 09:00] VITALS: BP 92/61
[2022-12-09] MEDS: DEXAMETHASONE SODIUM PHOSPHATE IV SCH (09:05)
[2022-12-09] MEDS: FAMOTIDINE INJ 20MG/2ML VIAL IV SCH (09:05)
[2022-12-09] MEDS: diphenhydrAMINE INJ 50 MG/ML VIAL IV PRN (09:05)
[2022-12-09] MEDS: NS IV 1000 ML (CANCER CTR) IV SCH (09:05)
[2022-12-09] MEDS: ONDANSETRON IV SCH (09:05)
[2022-12-09] MEDS: [UNRECOGNIZED DRUG - OTHER] IV SCH (09:05)
[2022-12-09] MEDS: NORMAL SALINE IV SCH (09:46)
[2022-12-09] MEDS: PACLITAXEL IV SCH (09:46)
[2022-12-15 09:39] LABS: BASOPHILS % (AUTO) 2 % (0-10); EOSINOPHILS % (AUTO) 2 % (0-10); HEMATOCRIT 37 % (35-52); HEMOGLOBIN 11.9 g/dL (11.5-16.0); LYMPHOCYTES % (AUTO) 42 % (12-44); MEAN CORPUSCULAR HEMOGLOBIN 29 pg (25-34); MEAN CORPUSCULAR HGB CONC 32 g/dL (32-36); MEAN CORPUSCULAR VOLUME 90 fL (80-99); MEAN PLATELET VOLUME 9.4 fL (9.0-12.2); MONOCYTES # (AUTO) 0.2 10^3/uL (0.0-1.0); MONOCYTES % (AUTO) 6 % (0-12); NEUTROPHILS # (AUTO) 1.2 10^3/uL (1.8-7.8); NEUTROPHILS % (AUTO) 49 % (42-75); PLATELET COUNT 334 10^3/uL (130-400); WHITE BLOOD COUNT 2.4 10^3/uL (4.3-11.0)
[2022-12-15 09:57] LABS: ALBUMIN 4.4 GM/DL (3.2-4.5); BILIRUBIN,TOTAL 0.4 MG/DL (0.1-1.0); CREATININE SERUM 0.8 MG/DL (0.60-1.30); POTASSIUM 4.1 MMOL/L (3.6-5.0); TOTAL PROTEIN 7.2 GM/DL (6.4-8.2)
[2022-12-16] MEDS: NS IV 1000 ML (CANCER CTR) IV SCH (09:43)
[2022-12-16] MEDS: FAMOTIDINE INJ 20MG/2ML VIAL IV SCH (09:44)
[2022-12-16] MEDS: ONDANSETRON IV SCH (09:50)
[2022-12-16] MEDS: diphenhydrAMINE INJ 50 MG/ML VIAL IV PRN (09:50)
[2022-12-16] MEDS: [UNRECOGNIZED DRUG - OTHER] IV SCH (09:50)
[2022-12-16] MEDS: DEXAMETHASONE SODIUM PHOSPHATE IV SCH (09:50)
[2022-12-16] MEDS: PACLITAXEL IV SCH (10:06)
[2022-12-16] MEDS: NORMAL SALINE IV SCH (10:06)
[2022-12-16] MEDS: HEParin (CENTRAL IV FLUSH) 500 UNIT/5 ML SYR IV PRN (11:04)
[2022-12-16 11:18] VITALS: BP 106/72
[2022-12-22 09:29] LABS: BASOPHILS % (AUTO) 2 % (0-10); EOSINOPHILS % (AUTO) 2 % (0-10); HEMATOCRIT 37 % (35-52); HEMOGLOBIN 11.9 g/dL (11.5-16.0); LYMPHOCYTES # (AUTO) 0.8 10^3/uL (1.0-4.0); LYMPHOCYTES % (AUTO) 29 % (12-44); MEAN CORPUSCULAR HEMOGLOBIN 30 pg (25-34); MEAN CORPUSCULAR HGB CONC 32 g/dL (32-36); MEAN CORPUSCULAR VOLUME 91 fL (80-99); MEAN PLATELET VOLUME 9.3 fL (9.0-12.2); MONOCYTES # (AUTO) 0.2 10^3/uL (0.0-1.0); MONOCYTES % (AUTO) 7 % (0-12); NEUTROPHILS # (AUTO) 1.6 10^3/uL (1.8-7.8); NEUTROPHILS % (AUTO) 61 % (42-75); PLATELET COUNT 285 10^3/uL (130-400); WHITE BLOOD COUNT 2.7 10^3/uL (4.3-11.0)
[2022-12-22 09:58] LABS: ALBUMIN 4.5 GM/DL (3.2-4.5); BILIRUBIN,TOTAL 0.4 MG/DL (0.1-1.0); CALCIUM 9.2 MG/DL (8.5-10.1); CREATININE SERUM 0.81 MG/DL (0.60-1.30); POTASSIUM 4.1 MMOL/L (3.6-5.0); TOTAL PROTEIN 7.2 GM/DL (6.4-8.2)
[2022-12-23 09:05] VITALS: BP 92/59
[2022-12-23] MEDS: DEXAMETHASONE SODIUM PHOSPHATE IV SCH (09:14)
[2022-12-23] MEDS: diphenhydrAMINE INJ 50 MG/ML VIAL IV PRN (09:14)
[2022-12-23] MEDS: NS IV 1000 ML (CANCER CTR) IV SCH (09:14)
[2022-12-23] MEDS: FAMOTIDINE INJ 20MG/2ML VIAL IV SCH (09:14)
[2022-12-23] MEDS: [UNRECOGNIZED DRUG - OTHER] IV SCH (09:14)
[2022-12-23] MEDS: ONDANSETRON IV SCH (09:14)
[2022-12-23] MEDS: NORMAL SALINE IV SCH (09:43)
[2022-12-23] MEDS: PACLITAXEL IV SCH (09:43)
[2022-12-29 10:25] LABS: BASOPHILS # (AUTO) 0.1 10^3/uL (0.0-0.1); BASOPHILS % (AUTO) 2 % (0-10); EOSINOPHILS # (AUTO) 0.1 10^3/uL (0.0-0.3); EOSINOPHILS % (AUTO) 2 % (0-10); HEMATOCRIT 37 % (35-52); HEMOGLOBIN 12.1 g/dL (11.5-16.0); LYMPHOCYTES # (AUTO) 0.9 10^3/uL (1.0-4.0); LYMPHOCYTES % (AUTO) 34 % (12-44); MEAN CORPUSCULAR HEMOGLOBIN 29 pg (25-34); MEAN CORPUSCULAR HGB CONC 33 g/dL (32-36); MEAN CORPUSCULAR VOLUME 89 fL (80-99); MEAN PLATELET VOLUME 9.4 fL (9.0-12.2); MONOCYTES # (AUTO) 0.2 10^3/uL (0.0-1.0); MONOCYTES % (AUTO) 9 % (0-12); NEUTROPHILS # (AUTO) 1.4 10^3/uL (1.8-7.8); NEUTROPHILS % (AUTO) 53 % (42-75); PLATELET COUNT 262 10^3/uL (130-400); WHITE BLOOD COUNT 2.7 10^3/uL (4.3-11.0)
[2022-12-29 10:51] LABS: ALANINE AMINOTRANSFERASE 18 U/L (0-55); ALBUMIN 4.7 GM/DL (3.2-4.5); ALKALINE PHOSPHATASE 45 U/L (40-136); BILIRUBIN,TOTAL 0.7 MG/DL (0.1-1.0); BUN/CREATININE RATIO 15; CALCIUM 9.2 MG/DL (8.5-10.1); CARBON DIOXIDE 26 MMOL/L (21-32); CHLORIDE 106 MMOL/L (98-107); CREATININE SERUM 0.81 MG/DL (0.60-1.30); GFR ESTIMATED 96; GLUCOSE 92 MG/DL (70-105); POTASSIUM 4.1 MMOL/L (3.6-5.0); SODIUM 137 MMOL/L (135-145); TOTAL PROTEIN 7.5 GM/DL (6.4-8.2)
[2022-12-30 09:05] VITALS: BP 101/62
[2022-12-30] MEDS: diphenhydrAMINE INJ 50 MG/ML VIAL IV PRN (09:14)
[2022-12-30] MEDS: FAMOTIDINE INJ 20MG/2ML VIAL IV SCH (09:14)
[2022-12-30] MEDS: NS IV 1000 ML (CANCER CTR) IV SCH (09:15)
[2022-12-30] MEDS: DEXAMETHASONE SODIUM PHOSPHATE IV SCH (09:16)
[2022-12-30] MEDS: [UNRECOGNIZED DRUG - OTHER] IV SCH (09:16)
[2022-12-30] MEDS: ONDANSETRON IV SCH (09:16)
[2022-12-30] MEDS: PACLITAXEL IV SCH (09:37)
[2022-12-30] MEDS: NORMAL SALINE IV SCH (09:37)
[2023-01-05 09:35] LABS: BASOPHILS # (AUTO) 0.1 10^3/uL (0.0-0.1); BASOPHILS % (AUTO) 1 % (0-10); EOSINOPHILS # (AUTO) 0.1 10^3/uL (0.0-0.3); EOSINOPHILS % (AUTO) 2 % (0-10); HEMATOCRIT 36 % (35-52); HEMOGLOBIN 11.8 g/dL (11.5-16.0); LYMPHOCYTES # (AUTO) 1.3 10^3/uL (1.0-4.0); LYMPHOCYTES % (AUTO) 21 % (12-44); MEAN CORPUSCULAR HEMOGLOBIN 30 pg (25-34); MEAN CORPUSCULAR HGB CONC 33 g/dL (32-36); MEAN CORPUSCULAR VOLUME 90 fL (80-99); MEAN PLATELET VOLUME 9.4 fL (9.0-12.2); MONOCYTES # (AUTO) 0.4 10^3/uL (0.0-1.0); MONOCYTES % (AUTO) 6 % (0-12); NEUTROPHILS # (AUTO) 4.2 10^3/uL (1.8-7.8); NEUTROPHILS % (AUTO) 70 % (42-75); PLATELET COUNT 287 10^3/uL (130-400)
[2023-01-05 09:58] LABS: ALBUMIN 4.5 GM/DL (3.2-4.5); BILIRUBIN,TOTAL 0.4 MG/DL (0.1-1.0); CALCIUM 9.1 MG/DL (8.5-10.1); CREATININE SERUM 0.79 MG/DL (0.60-1.30); POTASSIUM 4.1 MMOL/L (3.6-5.0)
[~2023-01-06] VITALS: Ht 177.8 cm; Wt 71.8 kg
[2023-01-06 09:35] VITALS: BP 122/80
[2023-01-06] MEDS: FAMOTIDINE INJ 20MG/2ML VIAL IV SCH (09:52)
[2023-01-06] MEDS: diphenhydrAMINE INJ 50 MG/ML VIAL IV PRN (09:52)
[2023-01-06] MEDS: DEXAMETHASONE SODIUM PHOSPHATE IV SCH (09:52)
[2023-01-06] MEDS: [UNRECOGNIZED DRUG - OTHER] IV SCH (09:52)
[2023-01-06] MEDS: ONDANSETRON IV SCH (09:52)
[2023-01-06] MEDS: NS IV 1000 ML (CANCER CTR) IV SCH (09:53)
[2023-01-06] MEDS: NORMAL SALINE IV SCH (10:09)
[2023-01-06] MEDS: PACLITAXEL IV SCH (10:09)
[2023-01-06] MEDS: HEParin (CENTRAL IV FLUSH) 500 UNIT/5 ML SYR IV PRN (11:23)
== END 2023-01-08 | disposition home or self-care (01) ==
LOC: ONC 07:39
PROVIDERS: ATTEND Internal Medicine Hematology & Oncology
DX: Z51.11 Encounter for antineoplastic chemotherapy (principal); Z45.2 Encounter for adjustment and management of vascular access device; C50.911 Malignant neoplasm of unspecified site of right female breast
CPT/HCPCS: 36415; 36591; 80053; 85025; 96360; 96375; 96413; 96523; 99214

== ENCOUNTER → 2023-03-10 | Outpatient (RCR) | payer OTHER ==
[2023-02-09 10:08] LABS: BASOPHILS % (AUTO) 1 % (0-10); EOSINOPHILS # (AUTO) 0.1 10^3/uL (0.0-0.3); EOSINOPHILS % (AUTO) 2 % (0-10); HEMATOCRIT 35 % (35-52); HEMOGLOBIN 11.4 g/dL (11.5-16.0); LYMPHOCYTES # (AUTO) 1.1 10^3/uL (1.0-4.0); LYMPHOCYTES % (AUTO) 26 % (12-44); MEAN CORPUSCULAR HEMOGLOBIN 30 pg (25-34); MEAN CORPUSCULAR HGB CONC 33 g/dL (32-36); MEAN CORPUSCULAR VOLUME 90 fL (80-99); MEAN PLATELET VOLUME 9.4 fL (9.0-12.2); MONOCYTES # (AUTO) 0.2 10^3/uL (0.0-1.0); MONOCYTES % (AUTO) 5 % (0-12); NEUTROPHILS # (AUTO) 2.9 10^3/uL (1.8-7.8); NEUTROPHILS % (AUTO) 66 % (42-75); PLATELET COUNT 306 10^3/uL (130-400); WHITE BLOOD COUNT 4.4 10^3/uL (4.3-11.0)
[2023-02-09 10:31] LABS: ALBUMIN 4.5 GM/DL (3.2-4.5); BILIRUBIN,TOTAL 0.5 MG/DL (0.1-1.0); CALCIUM 9.1 MG/DL (8.5-10.1); CREATININE SERUM 0.76 MG/DL (0.60-1.30); POTASSIUM 3.7 MMOL/L (3.6-5.0); TOTAL PROTEIN 7.3 GM/DL (6.4-8.2)
[2023-02-10 09:15] VITALS: BP 114/65
[2023-02-10] MEDS: NS IV 1000 ML (CANCER CTR) IV SCH (09:16)
[2023-02-10] MEDS: HEParin (CENTRAL IV FLUSH) 500 UNIT/5 ML SYR IV PRN (10:44)
[2023-02-23 09:28] LABS: BASOPHILS # (AUTO) 0.1 10^3/uL (0.0-0.1); BASOPHILS % (AUTO) 1 % (0-10); EOSINOPHILS # (AUTO) 0.1 10^3/uL (0.0-0.3); EOSINOPHILS % (AUTO) 3 % (0-10); HEMATOCRIT 36 % (35-52); HEMOGLOBIN 11.8 g/dL (11.5-16.0); LYMPHOCYTES # (AUTO) 1.1 10^3/uL (1.0-4.0); LYMPHOCYTES % (AUTO) 26 % (12-44); MEAN CORPUSCULAR HEMOGLOBIN 30 pg (25-34); MEAN CORPUSCULAR HGB CONC 33 g/dL (32-36); MEAN CORPUSCULAR VOLUME 90 fL (80-99); MEAN PLATELET VOLUME 9.2 fL (9.0-12.2); MONOCYTES # (AUTO) 0.5 10^3/uL (0.0-1.0); MONOCYTES % (AUTO) 11 % (0-12); NEUTROPHILS # (AUTO) 2.5 10^3/uL (1.8-7.8); NEUTROPHILS % (AUTO) 59 % (42-75); PLATELET COUNT 281 10^3/uL (130-400); WHITE BLOOD COUNT 4.2 10^3/uL (4.3-11.0)
[2023-02-23 09:48] LABS: ALANINE AMINOTRANSFERASE 21 U/L (0-55); ALBUMIN 4.6 GM/DL (3.2-4.5); ALKALINE PHOSPHATASE 49 U/L (40-136); BILIRUBIN,TOTAL 0.5 MG/DL (0.1-1.0); BUN/CREATININE RATIO 22; CALCIUM 9.2 MG/DL (8.5-10.1); CARBON DIOXIDE 26 MMOL/L (21-32); CHLORIDE 103 MMOL/L (98-107); CREATININE SERUM 0.78 MG/DL (0.60-1.30); GFR ESTIMATED 100; GLUCOSE 87 MG/DL (70-105); POTASSIUM 3.8 MMOL/L (3.6-5.0); SODIUM 138 MMOL/L (135-145); TOTAL PROTEIN 7.3 GM/DL (6.4-8.2)
[2023-02-24 09:30] VITALS: BP 112/68
[2023-02-24] MEDS: FOSAPREPITANT (CANCER CENTER) 150 MG in NS (IVPB) CANCER CENTER ONLY 150 ML IV SCH (09:56)
[2023-02-24] MEDS: NS IV 1000 ML (CANCER CTR) IV SCH (09:56)
[2023-02-24] MEDS: PALONOSETRON HCL 0.25 MG, dexAMETHasone sodium phosphate 10 MG in NS (IVPB) 50 ML 50 ML IV SCH (10:22)
[2023-02-24] MEDS: NS IV SCH (10:36)
[2023-02-24] MEDS: DOXORUBICIN HCL IV SCH (10:36)
[2023-02-24] MEDS: [UNRECOGNIZED DRUG - OTHER] IV SCH (10:56)
[2023-02-24] MEDS: CYCLOPHOSPHAMIDE IV SCH (10:56)
[2023-02-24] MEDS: HEParin (CENTRAL IV FLUSH) 500 UNIT/5 ML SYR IV PRN (12:02)
[2023-03-09 09:48] LABS: BASOPHILS # (AUTO) 0.1 10^3/uL (0.0-0.1); BASOPHILS % (AUTO) 1 % (0-10); EOSINOPHILS # (AUTO) 0.1 10^3/uL (0.0-0.3); EOSINOPHILS % (AUTO) 1 % (0-10); HEMATOCRIT 36 % (35-52); HEMOGLOBIN 11.4 g/dL (11.5-16.0); LYMPHOCYTES # (AUTO) 1.4 10^3/uL (1.0-4.0); LYMPHOCYTES % (AUTO) 13 % (12-44); MEAN CORPUSCULAR HEMOGLOBIN 29 pg (25-34); MEAN CORPUSCULAR HGB CONC 32 g/dL (32-36); MEAN CORPUSCULAR VOLUME 92 fL (80-99); MEAN PLATELET VOLUME 9.2 fL (9.0-12.2); MONOCYTES # (AUTO) 0.7 10^3/uL (0.0-1.0); MONOCYTES % (AUTO) 7 % (0-12); NEUTROPHILS # (AUTO) 7.3 10^3/uL (1.8-7.8); NEUTROPHILS % (AUTO) 67 % (42-75); PLATELET COUNT 203 10^3/uL (130-400); WHITE BLOOD COUNT 10.8 10^3/uL (4.3-11.0)
[2023-03-09 10:05] LABS: ALANINE AMINOTRANSFERASE 28 U/L (0-55); ALBUMIN 4.8 GM/DL (3.2-4.5); ALKALINE PHOSPHATASE 78 U/L (40-136); BILIRUBIN,TOTAL 0.3 MG/DL (0.1-1.0); BUN/CREATININE RATIO 20; CALCIUM 9.6 MG/DL (8.5-10.1); CARBON DIOXIDE 26 MMOL/L (21-32); CHLORIDE 104 MMOL/L (98-107); CREATININE SERUM 0.85 MG/DL (0.60-1.30); GFR ESTIMATED 90; GLUCOSE 77 MG/DL (70-105); POTASSIUM 3.8 MMOL/L (3.6-5.0); SODIUM 140 MMOL/L (135-145); TOTAL PROTEIN 7.7 GM/DL (6.4-8.2)
[~2023-03-10] VITALS: Ht 177.8 cm; Wt 72.7 kg
[~2023-03-10] MED LIST changes: +DEXAMETHASONE SODIUM PHOSPHATE IV SCH; +FAMOTIDINE INJ 20MG/2ML VIAL IV SCH; +NORMAL SALINE IV SCH; +NS 100 ML (IVPB) BAG IV PRN; +NS IV 1000 ML 1,000 ML IV PRN; +ONDANSETRON IV SCH; +PACLITAXEL IV SCH; +PEGFILGRASTIM JMDB 6 MG/0.6 ML SQ SCH; +[UNRECOGNIZED DRUG - OTHER] IV SCH; +diphenhydrAMINE INJ 50 MG/ML VIAL IV PRN
[2023-03-10 09:10] VITALS: BP 107/63
[2023-03-10] MEDS: NS IV 1000 ML (CANCER CTR) IV SCH (09:10)
[2023-03-10] MEDS: FOSAPREPITANT (CANCER CENTER) 150 MG in NS (IVPB) CANCER CENTER ONLY 150 ML IV SCH (09:10)
[2023-03-10] MEDS: PALONOSETRON HCL 0.25 MG, dexAMETHasone sodium phosphate 10 MG in NS (IVPB) 50 ML 50 ML IV SCH (09:37)
[2023-03-10] MEDS: DOXORUBICIN HCL IV SCH (09:51)
[2023-03-10] MEDS: NS IV SCH (09:51)
[2023-03-10] MEDS: CYCLOPHOSPHAMIDE IV SCH (10:10)
[2023-03-10] MEDS: [UNRECOGNIZED DRUG - OTHER] IV SCH (10:10)
[2023-03-10] MEDS: HEParin (CENTRAL IV FLUSH) 500 UNIT/5 ML SYR IV PRN (11:40)
== END | disposition home or self-care (01) ==
LOC: ONC 02-09 09:55
PROVIDERS: ATTEND Internal Medicine Hematology & Oncology
DX: Z51.11 Encounter for antineoplastic chemotherapy (principal); Z45.2 Encounter for adjustment and management of vascular access device; C50.911 Malignant neoplasm of unspecified site of right female breast
CPT/HCPCS: 36415; 80053; 85025; 96367; 96372; 96375; 96413; 96417; 96523; 99214

== ENCOUNTER 2023-03-25 06:19 | Outpatient (CLI) | payer OTHER ==
[~2023-03-25] VITALS: Ht 177.8 cm; Wt 72.7 kg
[~2023-03-25 06:19] MED LIST changes: -DEXAMETHASONE SODIUM PHOSPHATE IV SCH; -FAMOTIDINE INJ 20MG/2ML VIAL IV SCH; -NORMAL SALINE IV SCH; -NS 100 ML (IVPB) BAG IV PRN; -NS IV 1000 ML 1,000 ML IV PRN; -ONDANSETRON IV SCH; -PACLITAXEL IV SCH; -PEGFILGRASTIM JMDB 6 MG/0.6 ML SQ SCH; -[UNRECOGNIZED DRUG - OTHER] IV SCH; -diphenhydrAMINE INJ 50 MG/ML VIAL IV PRN
== END 2023-03-25 09:58 | disposition home or self-care (01) ==
LOC: PREOP 06:19
PROVIDERS: ATTEND Surgery
DX: Z01.818 Encounter for other preprocedural examination (principal)

== ENCOUNTER 2023-03-30 06:49 | Day surgery (SDC) | payer OTHER ==
[~2023-03-30] VITALS: Ht 177.8 cm; Wt 72.7 kg
[2023-03-30] MEDS ORDERED: LACTATED RINGERS 1,000 ML 1,000 ML IV STA (06:55)
[2023-03-30 07:10] VITALS: BP 114/74
[2023-03-30] MEDS ORDERED: MIDAZOLAM INJ 2 MG/2 ML VIAL ONE (07:20)
--- NOTE | 2023-03-30 07:47 | Progress Note-Post Operative ---
Post-Operative Progess Note Surgeon (s)/Case Specialist (s) Surgeon KATELYN PEREZ DO Case Specialist: n/a Pre-Operative Diagnosis rectal bleeding Post-Operative Diagnosis Normal Colonoscopy Procedure & Operative Findings Date of Procedure 03/30/23 Procedure Performed/Findings Colonoscopy Anesthesia Type per MANAGER ADOBE Estimated Blood Loss Estimated blood loss (mL): none Specimens/Packing Specimens Removed none KATELYN PEREZ DO Mar 30, 2023 07:47
--- NOTE | 2023-03-30 07:49 | Discharge Inst-Simple/Standard ---
Discharge Inst-Standard Patient Instructions/Follow Up Plan of Care/Instructions/FU: follow up PRN Activity as Tolerated: Yes Discharge Diet: Regular Diet KATELYN PEREZ DO Mar 30, 2023 07:49
[2023-03-30 07:50] VITALS: BP 81/51
[2023-03-30 07:55] VITALS: BP 83/53
[2023-03-30 08:00] VITALS: BP 83/50
[2023-03-30 08:10] VITALS: BP 87/53
[2023-03-30 09:20] VITALS: BP 87/53
--- NOTE | 2023-03-30 13:55 | Anesthesia-General Post-Op ---
MAC Patient Condition Mental Status/LOC: Same as Preop Cardiovascular: Satisfactory Nausea/Vomiting: Absent Respiratory: Satisfactory Pain: Controlled Complications: Absent Post Op Complications Complications None Follow Up Care/Instructions Patient Instructions None needed. Anesthesiology Discharge Order Discharge Order Patient is doing well, no complaints, stable vital signs, no apparent adverse anesthesia problems. No complications reported per nursing. ROMARIO ROWELL LANDSCAPE FOREMAN Mar 30, 2023 13:54
--- NOTE | 2023-03-30 15:31 | OPERATIVE REPORT ---
DATE OF SERVICE: 03/30/2023 PREOPERATIVE DIAGNOSIS: Blood in stool. POSTOPERATIVE DIAGNOSIS: Normal colon. PROCEDURE: Colonoscopy. SURGEON: Katelyn Juarez DO ANESTHESIA: Per SHRIMPING BOAT CAPTAIN. ESTIMATED BLOOD LOSS: None. COMPLICATIONS: None. INDICATIONS: The patient is a 38-year-old female with blood in her stool. She understands risks and benefits of procedure and wished to proceed. Consent was signed in chart. DESCRIPTION OF PROCEDURE: The patient was taken to endoscopy suite, placed in left lateral recumbent position. Timeout was performed. Digital rectal exam was performed. No palpable polyps, masses or ulcerations. Scope was inserted in the rectum, advanced all the way to the cecum with minimal difficulty. Prep was adequate. Scope was slowly retracted back. No polyps, masses or ulcerations in the cecum, ascending, transverse, descending and sigmoid colon. Once in the rectum, scope was retroflexed noting no other pathology. Scope was returned to its normal position, slowly withdrawn until completely removed. The patient tolerated the procedure well without any complications, taken to recovery room in stable condition. RECOMMENDATIONS: The patient will need repeat colonoscopy starting at age 45, unless she has any issues before that she should be reevaluated at that time. Job ID: [id number] DocumentID: [id number] Dictated Date: 03/30/2023 07:47:48 Crime Scene Specialist Date: 03/30/2023 15:29:00 Dictated By: KATELYN JUAREZ DO
== END 2023-03-30 09:42 | disposition home or self-care (01) ==
LOC: ENDO 06:49
PROVIDERS: ATTEND Surgery
DX: K92.1 Melena (principal)
CPT/HCPCS: 84703

== ENCOUNTER 2023-04-08 11:53 | Outpatient (RCR) | payer OTHER ==
[2023-03-11] MEDS: PEGFILGRASTIM JMDB 6 MG/0.6 ML SQ SCH (11:50)
[2023-03-13 11:47] VITALS: BP 97/59
[2023-03-13] MEDS: NS IV 1000 ML (CANCER CTR) IV SCH (11:47)
[2023-03-23 10:43] LABS: BASOPHILS % (AUTO) 0 % (0-10); EOSINOPHILS % (AUTO) 0 % (0-10); HEMATOCRIT 31 % (35-52); HEMOGLOBIN 9.9 g/dL (11.5-16.0); LYMPHOCYTES # (AUTO) 0.9 10^3/uL (1.0-4.0); LYMPHOCYTES % (AUTO) 5 % (12-44); MEAN CORPUSCULAR HEMOGLOBIN 30 pg (25-34); MEAN CORPUSCULAR HGB CONC 32 g/dL (32-36); MEAN CORPUSCULAR VOLUME 94 fL (80-99); MEAN PLATELET VOLUME 9.3 fL (9.0-12.2); MONOCYTES # (AUTO) 1.3 10^3/uL (0.0-1.0); MONOCYTES % (AUTO) 8 % (0-12); NEUTROPHILS # (AUTO) 9.9 10^3/uL (1.8-7.8); NEUTROPHILS % (AUTO) 60 % (42-75); PLATELET COUNT 238 10^3/uL (130-400); WHITE BLOOD COUNT 16.4 10^3/uL (4.3-11.0)
[2023-03-23 11:01] LABS: ALBUMIN 4.4 GM/DL (3.2-4.5); BILIRUBIN,TOTAL 0.2 MG/DL (0.1-1.0); CREATININE SERUM 0.72 MG/DL (0.60-1.30); POTASSIUM 3.6 MMOL/L (3.6-5.0)
[2023-03-24 09:15] VITALS: BP 108/65
[2023-03-24] MEDS: NS IV 1000 ML (CANCER CTR) IV SCH (09:21)
[2023-03-24] MEDS: FOSAPREPITANT (CANCER CENTER) 150 MG in NS (IVPB) CANCER CENTER ONLY 150 ML IV SCH (09:21)
[2023-03-24] MEDS: PALONOSETRON HCL 0.25 MG, dexAMETHasone sodium phosphate 10 MG in NS (IVPB) 50 ML 50 ML IV SCH (09:51)
[2023-03-24] MEDS: NS IV SCH (10:05)
[2023-03-24] MEDS: DOXORUBICIN HCL IV SCH (10:05)
[2023-03-24] MEDS: [UNRECOGNIZED DRUG - OTHER] IV SCH (10:26)
[2023-03-24] MEDS: CYCLOPHOSPHAMIDE IV SCH (10:26)
[2023-03-25] MEDS: PEGFILGRASTIM JMDB 6 MG/0.6 ML SQ SCH (11:44)
[2023-04-06 11:13] LABS: BASOPHILS # (AUTO) 0.2 10^3/uL (0.0-0.1); BASOPHILS % (AUTO) 2 % (0-10); EOSINOPHILS # (AUTO) 0.1 10^3/uL (0.0-0.3); EOSINOPHILS % (AUTO) 1 % (0-10); HEMATOCRIT 32 % (35-52); HEMOGLOBIN 10.5 g/dL (11.5-16.0); LYMPHOCYTES # (AUTO) 0.9 10^3/uL (1.0-4.0); LYMPHOCYTES % (AUTO) 8 % (12-44); MEAN CORPUSCULAR HEMOGLOBIN 31 pg (25-34); MEAN CORPUSCULAR HGB CONC 33 g/dL (32-36); MEAN CORPUSCULAR VOLUME 94 fL (80-99); MEAN PLATELET VOLUME 9.5 fL (9.0-12.2); MONOCYTES % (AUTO) 9 % (0-12); NEUTROPHILS # (AUTO) 6.7 10^3/uL (1.8-7.8); NEUTROPHILS % (AUTO) 56 % (42-75); PLATELET COUNT 300 10^3/uL (130-400)
[2023-04-06 11:35] LABS: ALANINE AMINOTRANSFERASE 28 U/L (0-55); ALBUMIN 4.6 GM/DL (3.2-4.5); ALKALINE PHOSPHATASE 104 U/L (40-136); BILIRUBIN,TOTAL 0.3 MG/DL (0.1-1.0); BUN/CREATININE RATIO 21; CALCIUM 9.5 MG/DL (8.5-10.1); CARBON DIOXIDE 30 MMOL/L (21-32); CHLORIDE 104 MMOL/L (98-107); GFR ESTIMATED 97; GLUCOSE 84 MG/DL (70-105); POTASSIUM 4.2 MMOL/L (3.6-5.0); SODIUM 142 MMOL/L (135-145); TOTAL PROTEIN 7.2 GM/DL (6.4-8.2)
[2023-04-07 09:18] VITALS: BP 91/64
[2023-04-07] MEDS: NS IV 1000 ML (CANCER CTR) IV SCH (09:23)
[2023-04-07] MEDS: FOSAPREPITANT (CANCER CENTER) 150 MG in NS (IVPB) CANCER CENTER ONLY 150 ML IV SCH (09:23)
[2023-04-07] MEDS: PALONOSETRON HCL 0.25 MG, dexAMETHasone sodium phosphate 10 MG in NS (IVPB) 50 ML 50 ML IV SCH (09:48)
[2023-04-07] MEDS: NS IV SCH (10:20)
[2023-04-07] MEDS: DOXORUBICIN HCL IV SCH (10:20)
[2023-04-07] MEDS: [UNRECOGNIZED DRUG - OTHER] IV SCH (10:40)
[2023-04-07] MEDS: CYCLOPHOSPHAMIDE IV SCH (10:40)
[~2023-04-08] VITALS: Ht 177.8 cm; Wt 73.6 kg
[~2023-04-08 11:53] MED LIST changes: +HEParin (CENTRAL IV FLUSH) 500 UNIT/5 ML SYR IV PRN
[2023-04-08] MEDS: PEGFILGRASTIM JMDB 6 MG/0.6 ML SQ SCH (11:55)
== END 2023-04-09 | disposition home or self-care (01) ==
LOC: ONC 11:53
PROVIDERS: ATTEND Internal Medicine Hematology & Oncology
DX: Z51.11 Encounter for antineoplastic chemotherapy (principal); Z45.2 Encounter for adjustment and management of vascular access device; C50.911 Malignant neoplasm of unspecified site of right female breast
CPT/HCPCS: 36415; 80053; 85025; 96360; 96367; 96372; 96375; 96413; 96417; 96523; 99214